=== PATIENT | male | born 1990 | race African-American/Black ===

== ENCOUNTER 2017-04-15 06:34 | Emergency (ER) | payer SELFPAY ==
[~2017-04-15] VITALS: Ht 180.3 cm; Wt 63.5 kg
[~2017-04-15 06:34] MED LIST: ATARAX25 MG PO; ATRIPLA TABLET1 EACH ORAL; AUGMENTIN TAB875 MG PO; BENADRYL25 MG ORAL; BENADRYL25 MG PO; CEPHALEXIN500 MG ORAL; FLONASE1 SPRAYS; IBUPROFEN600 MG ORAL; LORATADINE10 M1 PO; MULTIVITAMINS1 EAC2 PO; PHENERGAN/CODE120 ML PO; PREDNISONE50 MG ORAL; TAMIFLU75 MG PO; ZYRTEC10 MG ORAL; ZYRTEC10 MG PO
[2017-04-15 06:50] VITALS: BP 123/69
[2017-04-15] MEDS ORDERED: IBUPROFEN600 MG ORAL (06:54)
[2017-04-15 07:00] VITALS: BP 123/69
--- NOTE | 2017-04-15 07:23 | Emergency Room Report ---
History of Present Illness General Chief Complaint: General Complaint Source: Patient Present Illness HPI 26YOM with toothache to left lower mouth States has had 3/4 wisdom teeth removed, but not left lower mouth tooth Pain for 2 months Came this morning because he couldnt sleep no OTC meds Denies fever/chills, swelling of mouth, pus drainage from mouth Allergies: Coded Allergies: No Known Allergies (Unverified , 11/30/11) Patient History Past Medical History: HIV Past Surgical History: none Pertinent Family History: none Social History: Denies: smoking, alcohol use, drug use Immunizations: UTD Reviewed Nursing Documentation: PMH: Agreed, PSxH: Agreed Nursing Documentation-PMH Hx Neurological Problems: No Review of Systems All Other Systems: negative except mentioned in HPI Physical Exam Vital Signs Date Time Temp Pulse Resp B/P (MAP) Pulse Ox O2 Delivery O2 Flow Rate FiO2 04/15/17 06:37 97.3 87 18 123/69 98 Room Air Sp02 EP Interpretation: reviewed, normal General Appearance: normal inspection, well appearing, no apparent distress, alert, GCS 15, non-toxic Head: normocephalic, atraumatic Eyes: bilateral eye PERRL, bilateral eye EOMI ENT: normal ENT inspection, hearing grossly normal, normal pharynx, no angioedema, normal voice, TMs + canals normal, uvula midline, moist mucus membranes, other - Impacted left lower mouth wisdom tooth. No areli-apical infection or inflammation. No inner cheek ttp or mass. Neck: normal inspection, full range of motion, supple, thyroid normal, no meningismus, no bony tend Respiratory: normal inspection, lungs clear, normal breath sounds, no rhonchi, no respiratory distress, no retraction, no accessory muscle use, no wheezing, speaking full sentences Cardiovascular #1: regular rate, rhythm, no edema, no JVD, normal capillary refill Gastrointestinal: normal inspection, normal bowel sounds, non tender, soft, no mass, no peritonitis, non-distended, no guarding, no hernia, no pulsatile mass Genitourinary: no CVA tenderness Musculoskeletal: normal inspection, back normal, normal range of motion, no calf tenderness, pelvis stable, Nilo's Sign negative Neurologic: normal inspection, alert, oriented x3, responsive, cryptographic machine operator III-XII nml as tested, motor strength/tone normal, cerebellar normal, normal gait, speech normal Psychiatric: normal inspection, judgement/insight normal, mood/affect normal, no suicidal/homicidal ideation, no delusions Skin: normal inspection, normal color, no rash Lymphatic: normal inspection, no adenopathy Medical Decision Making Diagnostic Impression: Primary Impression: Toothache ER Course tootache from likely impacted wisdom tooth VSS, afebrile Analgesia provided Advised prompt dental followup ER course: Patient has remained stable during ED stay. Disposition: Patient is to be discharged to home. Prescriptions given are motrin Patient is instructed to follow up with their primary care doctor within 5 days. Strict return precautions discussed with patient such as fever, chills, worsening/severe pain, nausea, vomiting, which may indicate severe illness. Patient verbalizes understanding and agrees with plan. Please note that this Emergency Department Report was dictated using Kontagentthermoplastic technician technology software, occasionally this can lead to erroneous entry secondary to interpretation by the dictation equipment Last Vital Signs Date Time Temp Pulse Resp B/P (MAP) Pulse Ox O2 Delivery O2 Flow Rate FiO2 04/15/17 07:00 97.3 18 123/69 98 Room Air 04/15/17 06:37 87 Status: improved Disposition: HOME, SELF-CARE Condition: Improved Scripts Ibuprofen* (MOTRIN*) 600 Mg Tablet 600 MG ORAL THREE TIMES A DAY for toothache for 7 Days, #30 TAB 0 Refills Prov: VÍCTOR DOMINGUEZ M.D. 04/15/17 Referrals: NOT CHOSEN IPA/,REFERRING (PCP) Patient Instructions: Dental Pain Additional Instructions: - Followup at dental clinic TODAY VÍCTOR DOMINGUEZ M.D. Apr 15, 2017 07:23
== END 2017-04-15 07:00 | disposition home or self-care (01) ==
LOC: EMR 06:50
DX: K08.89 Other specified disorders of teeth and supporting structures (principal)
CPT/HCPCS: 99283

== ENCOUNTER 2017-04-19 05:05 | Emergency (ER) | payer SELFPAY ==
[~2017-04-19] VITALS: Ht 180.3 cm; Wt 63.5 kg
[2017-04-19] MEDS ORDERED: HYDROCODON-ACE1 EA15 ORAL (05:27)
[2017-04-19] MEDS ORDERED: AMOXICILLIN500 MG ORAL (05:27)
--- NOTE | 2017-04-19 05:29 | Emergency Room Report ---
History of Present Illness General Chief Complaint: Toothache Source: Patient Present Illness HPI This is a 26-year-old male with a past medical history. He presents with chief complaint of dental pain and smell from the tooth. Onset for a month but getting worse. Was seen here recently given ibuprofen. No antibiotics. No nausea no vomiting. No fever chills but no drainage. Worse with certain food and liquid. Allergies: Coded Allergies: No Known Allergies (Unverified , 11/30/11) Patient History Past Medical History: see triage record, old chart reviewed Past Surgical History: none Pertinent Family History: none Social History: Denies: smoking Immunizations: other Reviewed Nursing Documentation: PMH: Agreed, PSxH: Agreed Nursing Documentation-PMH Hx Neurological Problems: No Review of Systems Eye: Denies: eye pain, blurred vision ENT: Denies: ear pain, nose congestion, throat swelling Respiratory: Denies: cough, shortness of breath Cardiovascular: Denies: chest pain, palpitations Gastrointestinal: Denies: abdominal pain, diarrhea, nausea, vomiting Musculoskeletal: Denies: back pain, joint pain Skin: Denies: rash Neurological: Denies: headache, numbness Endocrine: Denies: increased thirst, increased urine Hematologic/Lymphatic: Denies: easy bruising All Other Systems: negative except mentioned in HPI Physical Exam Vital Signs Date Time Temp Pulse Resp B/P (MAP) Pulse Ox O2 Delivery O2 Flow Rate FiO2 04/19/17 05:08 97.5 75 16 150/96 98 Room Air vitals normal so for high blood pressure Sp02 EP Interpretation: reviewed, normal General Appearance: well appearing, no apparent distress, alert Head: normocephalic, atraumatic Eyes: bilateral eye PERRL, bilateral eye EOMI ENT: hearing grossly normal, normal pharynx, other - Left Lower second molar Dental decay. No abscess Neck: full range of motion, supple, no meningismus Respiratory: chest non-tender, lungs clear, normal breath sounds Cardiovascular #1: regular rate, rhythm, no murmur Gastrointestinal: normal bowel sounds, non tender, no mass, no organomegaly, no bruit, non-distended Musculoskeletal: back normal, gait/station normal, normal range of motion Psychiatric: mood/affect normal Skin: warm/dry Medical Decision Making Diagnostic Impression: Primary Impression: Toothache ER Course Patient with dental pain with possible dental infection. Will need to see a dentist WIN. Notice of any abscess I can be I&D. We'll discharge home with antibiotics. Last Vital Signs Date Time Temp Pulse Resp B/P (MAP) Pulse Ox O2 Delivery O2 Flow Rate FiO2 04/19/17 05:08 97.5 75 16 150/96 98 Room Air Status: unchanged Disposition: HOME, SELF-CARE Condition: Stable Scripts Hydrocodone/Acetaminophen 5-325* (HYDROCODONE/ACETAMINOPHEN 5-325*) 1 Each Tablet 1 TAB ORAL Q6H Y for For Pain, #15 TAB 0 Refills Prov: SHWETA AVINA M.D. 04/19/17 Amoxicillin* (AMOXIL*) 500 Mg Capsule 500 MG ORAL THREE TIMES A DAY, #21 CAP Prov: SHWETA AVINA M.D. 04/19/17 Patient Instructions: Dental Pain Additional Instructions: Followup with dentist WIN. You can try calling [facility] or [facility] dental [facility] to see a they have a clinic. Return if symptom worsen. SHWETA AVINA M.D. Apr 19, 2017 05:29
[2017-04-19 05:30] VITALS: BP 142/88
[2017-04-19 05:35] VITALS: BP 142/88
== END 2017-04-19 05:35 | disposition home or self-care (01) ==
LOC: EMR 05:25
DX: K08.89 Other specified disorders of teeth and supporting structures (principal)
CPT/HCPCS: 99283

== ENCOUNTER 2017-06-23 10:11 | Emergency (ER) | payer MEDICAID ==
[~2017-06-23] VITALS: Ht 182.9 cm; Wt 63.5 kg
[~2017-06-23 10:11] MED LIST changes: +AMOXICILLIN500 MG ORAL; +HYDROCODON-ACE1 EA15 ORAL
[2017-06-23 10:42] VITALS: BP 135/80
[2017-06-23] MEDS ORDERED: Lidocaine 2% Visc 15ml soln ORAL ONE (10:45)
--- NOTE | 2017-06-23 11:01 | Emergency Room Report ---
History of Present Illness General Chief Complaint: Toothache Source: Patient Present Illness HPI Patient presents with L molar pain (possible wisdom tooth). Seen by dentist today and told to come to ED. No fevers, sore throat, dyspnea, chest pain, trauma. Was seen twice last month for similar problem. Allergies: Coded Allergies: No Known Allergies (Unverified , 11/30/11) Patient History Past Medical History: see triage record Social History: Reports: smoking Social History Narrative student Reviewed Nursing Documentation: PMH: Agreed; PSxH: Agreed Nursing Documentation-PMH Hx Cardiac Problems: Yes - HIV+ Hx Neurological Problems: No Review of Systems Constitutional: Reports: see HPI ENT: Reports: see HPI Respiratory: Reports: see HPI Cardiovascular: Denies: chest pain Gastrointestinal: Denies: nausea Physical Exam Vital Signs Date Time Temp Pulse Resp B/P (MAP) Pulse Ox O2 Delivery O2 Flow Rate FiO2 06/23/17 10:32 97.8 76 22 135/80 98 Room Air 97.9 Sp02 EP Interpretation: reviewed, normal General Appearance: well appearing, no apparent distress, alert Head: normocephalic, atraumatic Eyes: bilateral eye normal inspection, bilateral eye PERRL ENT: hearing grossly normal, normal pharynx, normal voice, moist mucus membranes, other - L rear molar (wisdom tooth) with partial coverage with gum. No drainage Neck: full range of motion, supple, other - jaw FROM Respiratory: no respiratory distress, speaking full sentences Cardiovascular #1: normal peripheral pulses Cardiovascular #2: 2+ radial (L) Rectal: normal exam Musculoskeletal: no calf tenderness Neurologic: alert, normal gait, grossly normal Psychiatric: mood/affect normal Skin: no rash Medical Decision Making Diagnostic Impression: Primary Impression: Impacted third molar tooth Additional Impression: Toothache ER Course Patient with tooth pain. Exam c/w infected L lower molar/wisdom tooth. Viscous lido applied and amox started. Improved with treatment. Advised that he needs to see a dentis soon. (I suggested [facility] dental clinic.) Patient stable for outpatient observation and treatment. Of note, patient here twice last month with same complaint. Search of Cures negative. Last Vital Signs Date Time Temp Pulse Resp B/P (MAP) Pulse Ox O2 Delivery O2 Flow Rate FiO2 06/23/17 12:10 97.9 75 20 135/80 98 Room Air 97.9 Status: improved Disposition: HOME, SELF-CARE Condition: Improved Scripts Lidocaine HCl 2% Viscous (Lidocaine HCl 2% Viscous) 100 Ml Solution 1 APPLIC ORAL QID, #10 ML Prov: Mitch Lucero M.D. 06/23/17 Tramadol Hcl* (ULTRAM*) 50 Mg Tablet 50 MG ORAL Q6H PRN for For Pain, #8 TAB 0 Refills Prov: Mitch Lucero M.D. 06/23/17 Ibuprofen* (MOTRIN*) 600 Mg Tablet 600 MG ORAL Q6H PRN for For Pain, #20 TAB Prov: Mitch Lucero M.D. 06/23/17 Amoxicillin* (AMOXIL*) 500 Mg Capsule 500 MG ORAL THREE TIMES A DAY, #21 CAP Prov: Mitch Lucero M.D. 06/23/17 Mitch Lucero M.D. Jun 23, 2017 11:01
[2017-06-23] MEDS ORDERED: TRAMADOL HCL50 MG ORAL (11:32)
[2017-06-23] MEDS ORDERED: IBUPROFEN600 MG ORAL (11:32)
[2017-06-23] MEDS ORDERED: AMOXICILLIN500 MG ORAL (11:32)
[2017-06-23] MEDS ORDERED: LIDOCAINE VISC100 ML ORAL (11:33)
[2017-06-23 12:10] VITALS: BP 135/80
== END 2017-06-23 12:24 | disposition home or self-care (01) ==
LOC: EMR 11:37
DX: K01.1 Impacted teeth (principal); K08.89 Other specified disorders of teeth and supporting structures
CPT/HCPCS: 99284

== ENCOUNTER 2019-06-19 22:20 | Emergency (ER) | payer MEDICAID ==
[~2019-06-19] VITALS: Ht 182.9 cm; Wt 70.3 kg
[~2019-06-19 22:20] MED LIST changes: +LIDOCAINE VISC100 ML ORAL; +TRAMADOL HCL50 MG ORAL
[2019-06-19 22:40] VITALS: BP 122/74
--- NOTE | 2019-06-19 22:40 | NUR ---
ED Nurse Note: Pt walked into ED for STD evaluation. Pt states he believes to have multiple STDs and wants to be treated. Pt reports sores on penis. Pt is aaox4, no cardiac or respiratory distress.
[2019-06-19] MEDS ORDERED: FLUCONAZOLE100 MG ORAL (22:51)
[2019-06-19] MEDS ORDERED: ACYCLOVIR400 MG ORAL (22:51)
[2019-06-19] MEDS ORDERED: Bicillin LA 2.4MMU/4ML SYR IM ONE (23:00)
[2019-06-19] MEDS ORDERED: Lidocaine 1% MPF 10mg/ml 5ml INJ ONE (23:00)
[2019-06-19] MEDS ORDERED: Azithromycin 250mg tab ORAL ONE (23:00)
[2019-06-19 23:05] VITALS: BP 118/90
--- NOTE | 2019-06-19 23:05 | NUR ---
ER DISCHARGE NOTE: Patient is cleared to be discharged per ERMD, pt is aox4, on room air, with stable vital signs. pt was given dc and prescription instructions, pt was able to verbalize understanding, pt id band removed. pt is able to ambulate with steady gait. pt took all belongings.
--- NOTE | 2019-06-20 03:47 | Emergency Room Report ---
History of Present Illness General Chief Complaint: General Complaint Source: Patient Present Illness HPI 28-year-old male presents ED. States he is here for possible STD. States he has had unprotected sex. States that he is noticing some discharge. Also states he notes a rash around his genital area. Denies any pain. Denies any fevers or chills. No other aggravating relieving factors. Denies any other associated symptoms Allergies: Coded Allergies: No Known Allergies (Unverified , 11/30/11) COVID-19 Screening Contact w/high risk pt: No Recent Travel to affected area: No Experienced COVID-19 symptoms?: No Patient History Past Medical History: none Past Surgical History: none Pertinent Family History: none Social History: Denies: smoking, alcohol use, drug use Immunizations: UTD Reviewed Nursing Documentation: PMH: Agreed; PSxH: Agreed Nursing Documentation-PMH Hx Neurological Problems: No Review of Systems All Other Systems: negative except mentioned in HPI Physical Exam Vital Signs Date Time Temp Pulse Resp B/P (MAP) Pulse Ox O2 Delivery O2 Flow Rate FiO2 06/19/19 22:29 97.7 87 19 122/74 (90) 96 Room Air Sp02 EP Interpretation: reviewed, normal General Appearance: no apparent distress, alert, GCS 15, non-toxic Head: normocephalic, atraumatic Eyes: bilateral eye normal inspection, bilateral eye PERRL ENT: hearing grossly normal, normal pharynx, no angioedema, normal voice Neck: full range of motion, supple/symm/no masses Respiratory: chest non-tender, lungs clear, normal breath sounds, speaking full sentences Cardiovascular #1: regular rate, rhythm, no edema Cardiovascular #2: 2+ carotid (R), 2+ carotid (L), 2+ radial (R), 2+ radial (L) , 2+ dorsalis pedis (R), 2+ dorsalis pedis (L) Gastrointestinal: normal bowel sounds, non tender, soft, non-distended, no guarding, no rebound Rectal: deferred Genitourinary: normal inspection, no CVA tenderness Musculoskeletal: back normal, normal range of motion, gait/station normal, non- tender Neurologic: alert, motor strength/tone normal, oriented x3, sensory intact, responsive, speech normal Psychiatric: judgement/insight normal, memory normal, mood/affect normal, no suicidal/homicidal ideation Reflexes: 3+ bicep (R), 3+ bicep (L), 3+ tricep (R), 3+ tricep (L), 3+ knee (R) , 3+ knee (L) Lymphatic: no adenopathy Medical Decision Making Diagnostic Impression: Primary Impression: Encounter for assessment of STD exposure ER Course Hospital Course 28-year-old male presents ED with discharge. History of unprotected sex Differential diagnoses include: trichimonas, gonorrhea, chlamydia Clinical course Patient placed on stretcher. After initial history physical exam reveals a young male in no acute distress. Physical exam unremarkable. No testicular pain or swelling. No noted urethral discharge. No appreciable rash around the anal region or around the genitals. I discussed findings with patient. Concern for syphilis, gonorrhea/chlamydia. Given Rocephin/azithromycin. Given penicillin G. Will discharge with acyclovir. Recommend follow-up with STD clinic. I will provide referrals. Safe for discharge Diagnosis - encounter for assessment of STD exposure Stable and discharged home with prescriptions for Rx acyclovir. Instructed to followup with PMD. Return to ED if symptoms recur or worsen Last Vital Signs Date Time Temp Pulse Resp B/P (MAP) Pulse Ox O2 Delivery O2 Flow Rate FiO2 06/19/19 23:05 97.7 85 19 118/90 98 Room Air Status: improved Disposition: HOME, SELF-CARE Condition: Stable Scripts Fluconazole (FLUCONAZOLE) 100 Mg Tablet 100 MG ORAL DAILY for 3 Days, TAB 0 Refills Prov: Julio César Gallarod MD 06/19/19 Acyclovir* (ACYCLOVIR*) 400 Mg Tablet 400 MG ORAL FIVE TIMES A DAY for 7 Days, TAB Prov: Julio César Gallardo MD 06/19/19 Referrals: [facility] Patient Instructions: Chlamydia, Male Additional Instructions: in light of coronavirus pandemic we encourage you to go home and self-isolate. your close contacts need to self-isolate as well Julio César Gallardo MD Jun 20, 2019 03:47
== END 2019-06-19 23:05 | disposition home or self-care (01) ==
LOC: EMR 22:56
DX: R21 Rash and other nonspecific skin eruption (principal); Z20.2 Contact with and (suspected) exposure to infections with a predominantly sexual mode of transmission
CPT/HCPCS: 96372; 96374; J0696; Q0144; Z7502; 99284

== ENCOUNTER 2019-07-01 09:29 | Emergency (ER) | payer MEDICAID ==
[~2019-07-01] VITALS: Ht 182.9 cm; Wt 68.0 kg
[2019-07-01 09:20] VITALS: BP 156/99
--- NOTE | 2019-07-01 09:28 | NUR ---
ED Nurse Note: walked in to ED due to lesion on penis for couple weeks. denies any sx. per pt, seen by [facility] on that time and clear for any tx. pt also c/o possible lice on head. per pt, "something eat up" AAO x4. respirations even and non-labored noted. ambulatory with steady gait. pt placed in isolation tent due to contact with COVID positive client. will wait for the further order
[~2019-07-01 09:29] MED LIST changes: +ACYCLOVIR400 MG ORAL; +FLUCONAZOLE100 MG ORAL
--- NOTE | 2019-07-01 09:52 | Emergency Room Report ---
History of Present Illness General Chief Complaint: Male Urogenital Problems Source: Patient Present Illness HPI Patient presents with complaints of possible head lice Reports that he also has some continued itching In the genital region Denies any fevers or chills denies any chest pain denies any vomiting Denies any back or flank pain denies any dysuria frequency Allergies: Coded Allergies: No Known Allergies (Unverified , 11/30/11) COVID-19 Screening Contact w/high risk pt: Yes Recent Travel to affected area: No Experienced COVID-19 symptoms?: No Patient History Past Medical History: see triage record Reviewed Nursing Documentation: PMH: Agreed; PSxH: Agreed Nursing Documentation-PMH Past Medical History: No Stated History Hx Neurological Problems: No Review of Systems All Other Systems: negative except mentioned in HPI Physical Exam Vital Signs Date Time Temp Pulse Resp B/P (MAP) Pulse Ox O2 Delivery O2 Flow Rate FiO2 07/01/19 09:20 98.1 97 18 156/99 96 Room Air Sp02 EP Interpretation: reviewed, normal General Appearance: well appearing, no apparent distress Head: normocephalic, atraumatic Eyes: bilateral eye PERRL, bilateral eye EOMI ENT: hearing grossly normal, EOM grossly intact Neck: supple Respiratory: lungs clear, no respiratory distress, no retraction Cardiovascular #1: regular rate, rhythm Gastrointestinal: non tender, soft Musculoskeletal: normal inspection Neurologic: motor strength/tone normal Skin: no rash Lymphatic: no adenopathy Medical Decision Making Diagnostic Impression: Primary Impression: Lice Additional Impression: Encounter for medical screening examination ER Course On evaluation I cannot appreciate any obvious lice Patient also otherwise is medically stable and comfortable He had complained of some irritation to the penile area however on further questioning reports that there is nothing visual at this time Before the exam was Very limited patient was here recently He has the same name however date of is different therefore it does not populate for review please search by patient's name appears the patient was here on the june Patient was treated fully with oral and IM injections prescription for acyclovir Also provided with penicillin injection Patient does not require any further emergent intervention and is appropriate for continued outpatient follow-up Last Vital Signs Date Time Temp Pulse Resp B/P (MAP) Pulse Ox O2 Delivery O2 Flow Rate FiO2 07/01/19 09:20 98.1 97 18 156/99 (118) 96 Room Air Status: unchanged Disposition: HOME, SELF-CARE Condition: Stable Scripts Permethrin* (ELIMITE*) 60 Gm Cream..g. 1 APPLIC TOPIC ONCE for 3 Days, #60 GM 0 Refills Apply cream from head to toe; leave on for 8-14 hours before washing off with water; may reapply in 1 week if live mites appear. Prov: Surekha Marin DO 07/01/19 Referrals: NON PHYSICIAN (PCP) Additional Instructions: Patient is provided with the discharge instructions notified to follow up with primary doctor in the next 2-3 days otherwise return to the er with any worsening symptoms. Please note that this report is being documented using DRAGON technology. This can lead to erroneous entry secondary to incorrect interpretation by the dictating instrument. Surekha Marin DO Jul 01, 2019 09:52
[2019-07-01] MEDS ORDERED: PERMETHRIN60 GM TOPIC (09:57)
[2019-07-01 10:00] VITALS: BP 155/92
--- NOTE | 2019-07-01 10:00 | NUR ---
ER DISCHARGE NOTE: Pt is cleared to be discharged per ERMD, pt is aox4, on room air, with stable vital signs. pt was given dc and prescription instructions, pt was able to verbalize understanding, pt id band removed. pt is able to ambulate with steady gait. pt took all belongings.
== END 2019-07-01 10:00 | disposition home or self-care (01) ==
LOC: EMR 09:46
DX: B85.2 Pediculosis, unspecified (principal)
CPT/HCPCS: 99282

== ENCOUNTER 2019-12-10 22:03 | Emergency (ER) | payer MEDICAID ==
[~2019-12-10] VITALS: Ht 180.3 cm; Wt 72.6 kg
[~2019-12-10 22:03] MED LIST changes: +PERMETHRIN60 GM TOPIC
[2019-12-10 22:09] VITALS: BP 121/83
[2019-12-10 22:20] VITALS: BP 121/83
--- NOTE | 2019-12-10 22:20 | NUR ---
ED Nurse Note: Walk-in patient with complaints of STi symptoms.
[2019-12-10] MEDS ORDERED: Azithromycin 250mg tab ORAL ONE (22:30)
[2019-12-10] MEDS ORDERED: Lidocaine 1% MPF 10mg/ml 5ml INJ ONE (22:30)
--- NOTE | 2019-12-10 22:32 | Emergency Room Report ---
History of Present Illness General Chief Complaint: Male Urogenital Problems Source: Patient, Medical Record Present Illness HPI This a 29-year-old male with a history of HIV. He also has a history of multiple STDs in the past. He presents with chief complaint of possible STD. He is sexually active and has unprotected sex with multiple partners. He has some dysuria. No discharge. There is been ongoing for last few days. Similar symptom in the past. No fever chills but worse with urination. Denies any trauma. Allergies: Coded Allergies: No Known Allergies (Unverified , 11/30/11) COVID-19 Screening Contact w/high risk pt: No Recent Travel to affected area: No Experienced COVID-19 symptoms?: No COVID-19 Testing performed REGISTERED NURSE AMBULATORY: No Patient History Past Medical History: see triage record, old chart reviewed, HIV Past Surgical History: other Pertinent Family History: none Social History: Denies: smoking Immunizations: other Reviewed Nursing Documentation: PMH: Agreed; PSxH: Agreed Nursing Documentation-PMH Hx Neurological Problems: No Review of Systems Eye: Denies: eye pain, blurred vision ENT: Denies: ear pain, nose congestion, throat swelling Respiratory: Denies: cough, shortness of breath Cardiovascular: Denies: chest pain, palpitations Gastrointestinal: Denies: abdominal pain, diarrhea, nausea, vomiting Genitourinary: Reports: dysuria Musculoskeletal: Denies: back pain, joint pain Skin: Denies: rash Neurological: Denies: headache, numbness Endocrine: Denies: increased thirst, increased urine Hematologic/Lymphatic: Denies: easy bruising All Other Systems: negative except mentioned in HPI Physical Exam Vital Signs Date Time Temp Pulse Resp B/P (MAP) Pulse Ox O2 Delivery O2 Flow Rate FiO2 12/10/19 22:09 99.0 81 18 121/83 (96) 98 Room Air Vitals normal Sp02 EP Interpretation: reviewed, normal General Appearance: well appearing, no apparent distress, alert Head: normocephalic, atraumatic Eyes: bilateral eye PERRL, bilateral eye EOMI ENT: hearing grossly normal, normal pharynx Neck: full range of motion, supple, no meningismus Respiratory: chest non-tender, lungs clear, normal breath sounds Cardiovascular #1: regular rate, rhythm, no murmur Gastrointestinal: normal bowel sounds, non tender, no mass, no organomegaly, no bruit, non-distended Genitourinary: penis normal - No discharge Musculoskeletal: back normal, normal range of motion, gait/station normal Psychiatric: mood/affect normal Medical Decision Making Diagnostic Impression: Primary Impression: Urethritis, unspecified ER Course Patient with symptoms with possible STD. High risk patient. Patient given Rocephin and azithromycin here. Recommend outpatient testing for syphilis, hepatitis and other STDs. Recommend patient wear condoms at all time. Last Vital Signs Date Time Temp Pulse Resp B/P (MAP) Pulse Ox O2 Delivery O2 Flow Rate FiO2 12/10/19 22:09 99.0 81 18 121/83 (96) 98 Room Air Status: improved Disposition: HOME, SELF-CARE Condition: Stable Patient Instructions: Urethritis, Adult Additional Instructions: Have your partners treated. Use protection with a sexual activities. Follow-up with in 7 days. Return if worse. Harjit Bose MD Dec 10, 2019 22:32
--- NOTE | 2019-12-10 22:39 | NUR ---
ER DISCHARGE NOTE: Patient is cleared to be discharged per ERMD. Patient rendered medication for STI, patient verbalized understanding of discharge instructions and departed with all belongings to home via personal vehicle.
== END 2019-12-10 22:45 | disposition home or self-care (01) ==
LOC: EMR 22:43
DX: N34.2 Other urethritis (principal); B20 Human immunodeficiency virus [HIV] disease
CPT/HCPCS: 96372; 96374; J0696; Q0144; Z7502; 99284

== ENCOUNTER 2020-04-29 15:31 | Inpatient (IN) | payer MEDICAID ==
[~2020-04-29] VITALS: Ht 177.8 cm; Wt 69.9 kg
[2020-04-29] MEDS ORDERED: Glucagon 1mg Inj IV ONE (15:45)
[2020-04-29] MEDS ORDERED: Ketorolac 30mg Inj IV ONE (15:45)
[2020-04-29 15:50] VITALS: BP 112/88
[2020-04-29 16:08] LABS: BASOPHILS % (AUTO) 1.1 % (0.0-2.0); EOSINOPHILS % (AUTO) 1.2 % (0.0-3.0); HEMATOCRIT 58.9 % (42.0-52.0); HEMOGLOBIN 17.9 G/DL (14.2-18.0); LYMPHOCYTES % (AUTO) 25.8 % (20.0-45.0); MEAN CORPUSCULAR VOLUME 92 FL (80-99); MONOCYTES % (AUTO) 5.1 % (1.0-10.0); NEUTROPHILS % (AUTO) 66.8 % (45.0-75.0); PLATELET COUNT 399 K/UL (150-450); RED CELL DISTRIBUTION WIDTH 13.9 % (11.6-14.8); WHITE BLOOD COUNT 10.1 K/UL (4.8-10.8)
[2020-04-29 16:20] LABS: CALCIUM 10.8 MG/DL (8.5-10.1); CREATININE 2.6 MG/DL (0.55-1.30); POTASSIUM 4.1 MMOL/L (3.5-5.1)
[2020-04-29 16:31] LABS: ALBUMIN 5.2 G/DL (3.4-5.0); ALBUMIN/GLOBULIN RATIO 0.9 (1.0-2.7); BILIRUBIN,DIRECT 0.2 MG/DL (0.0-0.3); BILIRUBIN,TOTAL 1.5 MG/DL (0.2-1.0)
--- NOTE | 2020-04-29 16:34 | Diagnostic Imaging Report ---
Indication: Evidence of foreign body stuck in esophagus Technique: 2 views of the neck with soft tissue technique Comparison: none Findings: Radiopaque foreign body demonstrated. The small amount gas is seen in the distal cervical esophagus. No prevertebral soft tissue swelling. Normal epiglottis and hypopharynx. Normal cervical spine Impression: Negative
[2020-04-29] MEDS ORDERED: Varibar Thin Liquid powder 148gm MC PRN (16:45)
[2020-04-29] MEDS ORDERED: Barium EZ HD MC PRN (16:45)
[2020-04-29] MEDS ORDERED: Barium EZ Gas II granules MC PRN (16:45)
[2020-04-29 17:56] VITALS: BP 105/92
--- NOTE | 2020-04-29 18:21 | Emergency Room Report ---
History of Present Illness General Chief Complaint: Vomiting Source: Patient Present Illness HPI 29-year-old male presents for vomiting. Brought in by EMS from home. States that this morning he swallowed some steak and states he feels stuck in his throat. Multiple episodes of vomiting. Pain discomfort in his throat. Dull, 8 out of 10, nonradiating. Denies chest pain. Denies shortness of breath. No other aggravating relieving factors. Denies any other associated symptoms Allergies: Coded Allergies: No Known Allergies (Unverified , 04/29/20) COVID-19 Screening Contact w/high risk pt: No Recent Travel to affected area: No Experienced COVID-19 symptoms?: Yes COVID-19 Testing performed DIRECTOR STYLE: No Patient History Past Medical History: psych hx, HIV Past Surgical History: none Pertinent Family History: none Social History: Denies: smoking, alcohol use, drug use Immunizations: UTD Reviewed Nursing Documentation: PMH: Agreed; PSxH: Agreed Nursing Documentation-PMH Past Medical History: No History, Except For History Of Psychiatric Problem: Yes - bipolar, HIV Hx Neurological Problems: No Review of Systems All Other Systems: negative except mentioned in HPI Physical Exam Vital Signs Date Time Temp Pulse Resp B/P (MAP) Pulse Ox O2 Delivery O2 Flow Rate FiO2 04/29/20 15:26 98.1 114 24 112/88 (96) 96 Room Air Sp02 EP Interpretation: reviewed, normal General Appearance: no apparent distress, alert, GCS 15, non-toxic Head: normocephalic, atraumatic Eyes: bilateral eye normal inspection, bilateral eye PERRL ENT: hearing grossly normal, normal pharynx, no angioedema, normal voice Neck: full range of motion, supple/symm/no masses Respiratory: chest non-tender, lungs clear, normal breath sounds, speaking full sentences Cardiovascular #1: regular rate, rhythm, no edema Cardiovascular #2: 2+ carotid (R), 2+ carotid (L), 2+ radial (R), 2+ radial (L), 2+ dorsalis pedis (R), 2+ dorsalis pedis (L) Gastrointestinal: normal bowel sounds, non tender, soft, non-distended, no guarding, no rebound Rectal: deferred Genitourinary: normal inspection, no CVA tenderness Musculoskeletal: back normal, normal range of motion, gait/station normal, non- tender Neurologic: alert, motor strength/tone normal, oriented x3, sensory intact, responsive, speech normal Psychiatric: judgement/insight normal, memory normal, mood/affect normal, no suicidal/homicidal ideation Reflexes: 3+ bicep (R), 3+ bicep (L), 3+ tricep (R), 3+ tricep (L), 3+ knee (R), 3+ knee (L) Lymphatic: no adenopathy Medical Decision Making Diagnostic Impression: Primary Impression: Esophageal obstruction due to food impaction Additional Impression: Dehydration ER Course Hospital Course 29-year-old male presents with throat pain and vomiting after swallowing steak today Differential diagnoses include: Esophagitis, gastritis, esophageal obstruction Clinical course Patient placed on stretcher. 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 After initial history and physical I ordered labs, IV fluids, pain meds, glucagon Soft tissue film shows no obvious evidence of food impaction patient continues to vomit after p.o. challenge discussed with radiology. Esophagram performed which confirmed food impaction Labs - no leukocytosis, Hb/Hct stable. BUN/Cr elevated Dr Lopez (GI) consulted. Case discussed with Dr. Decker and he agreed to accept the patient to his service for further care and support I feel this is a highly complex case requiring extensive working including EKG/Rhythm strip, Xray/CT/US, Blood/urine lab work, repeat exams while in ED, and administration of strong opiates/narcotics for pain control, admission to hospital or close patient follow up. Diagnosis -esophageal obstruction due to food impaction, dehydration Patient admitted to floor in serious condition Laboratory Tests Test 04/29/20 15:38 White Blood Count 10.1 K/UL (4.8-10.8) Red Blood Count 6.40 M/UL (4.70-6.10) H Hemoglobin 17.9 G/DL (14.2-18.0) Hematocrit 58.9 % (42.0-52.0) H Mean Corpuscular Volume 92 FL (80-99) Mean Corpuscular Hemoglobin 28.0 PG (27.0-31.0) Mean Corpuscular Hemoglobin Concent 30.4 G/DL (32.0-36.0) L Red Cell Distribution Width 13.9 % (11.6-14.8) Platelet Count 399 K/UL (150-450) Mean Platelet Volume 8.1 FL (6.5-10.1) Neutrophils (%) (Auto) 66.8 % (45.0-75.0) Lymphocytes (%) (Auto) 25.8 % (20.0-45.0) Monocytes (%) (Auto) 5.1 % (1.0-10.0) Eosinophils (%) (Auto) 1.2 % (0.0-3.0) Basophils (%) (Auto) 1.1 % (0.0-2.0) Sodium Level 143 MMOL/L (136-145) Potassium Level 4.1 MMOL/L (3.5-5.1) Chloride Level 104 MMOL/L (98-107) Carbon Dioxide Level 27 MMOL/L (21-32) Anion Gap 12 mmol/L (5-15) Blood Urea Nitrogen 30 mg/dL (7-18) H Creatinine 2.6 MG/DL (0.55-1.30) H Estimat Glomerular Filtration Rate 36.1 mL/min (>60) Glucose Level 144 MG/DL (74-106) H Calcium Level 10.8 MG/DL (8.5-10.1) H Total Bilirubin 1.5 MG/DL (0.2-1.0) H Direct Bilirubin 0.2 MG/DL (0.0-0.3) Aspartate Amino Transf (AST/SGOT) 22 U/L (15-37) Alanine Aminotransferase (ALT/SGPT) 35 U/L (12-78) Alkaline Phosphatase 101 U/L (46-116) Total Protein 11.1 G/DL (6.4-8.2) H Albumin 5.2 G/DL (3.4-5.0) H Globulin 5.9 g/dL Albumin/Globulin Ratio 0.9 (1.0-2.7) L Lipase 140 U/L (73-393) Chest X-Ray Diagnostic Results Chest X-Ray Diagnostic Results : Chest X-Ray Ordered: Yes # of Views/Limited/Complete: 1 View Indication: Other EP Interpretation: Yes Interpretation: no consolidation, no effusion, no pneumothorax, no acute cardiopulmonary disease, other - barium bolus seen on CXR Impression: Other - food impaction Electronically Signed by: Electronically signed by Julio César Gallardo MD Other X-Ray Diagnostic Results Other X-Ray Diagnostic Results : X-Ray ordered: esophagram # of Views/Limited Vs Complete: Complete Indication: Pain EP Interpretation: Yes Interpretation: nonspecific bowel gas, no sbo, other - food impaction Impression: Other - food impaction Electronically Signed by: Electronically signed by Julio César Gallardo MD Last Vital Signs Date Time Temp Pulse Resp B/P (MAP) Pulse Ox O2 Delivery O2 Flow Rate FiO2 04/29/20 17:56 98.0 75 16 105/92 100 Room Air Status: improved Disposition: ADMITTED INPATIENT Condition: Serious Referrals: [facility],REFERRING (PCP) Julio César Gallardo MD Apr 29, 2020 18:21
--- NOTE | 2020-04-29 19:40 | NUR ---
NURSE NOTES: Received report from SEGUNDO Sy. Awaiting pt transfer.
--- NOTE | 2020-04-29 19:50 | NUR ---
TRANSFER TO FLOOR: Patient transferred to [facility] as ordered, per MD. Report given to David. Arnold at patient's BEDSIDE
[2020-04-29 19:51] LABS: INR 1.1 (0.9-1.1)
--- NOTE | 2020-04-29 19:55 | NUR ---
NURSE NOTES: Pt arrived on floor via gurney. A&Ox4, pt has belongings at bedside. Pt is ambulatory and is able to make needs known. Side rails up x2, bed locked and in lowest position, call light within reach. Will contact doctor for admission orders.
--- NOTE | 2020-04-29 21:25 | NUR ---
NURSE NOTES: Received admission orders, will enter and carry them out.
[2020-04-29] MEDS: D5 1/2NS 1,000 ML IV SCH (21:53)
--- NOTE | 2020-04-29 22:03 | Diagnostic Imaging Report ---
Indication: Chest pain Technique: One view of the chest Comparison: none Findings: Contrast is seen in the proximal thoracic esophagus, presumably residual from previous esophagram which demonstrated complete esophageal obstruction at this level. The lungs and pleural spaces are clear. Impression: No acute cardiopulmonary process Residual contrast in the proximal thoracic esophagus presumably left over from recent esophagram
[2020-04-30] VITALS (12 sets, daily range): BP systolic 93–136; BP diastolic 62–101
[2020-04-30] MEDS: Morphine Sulfate 2mg/ml Inj(IV/IM USE ONLY) IVP PRN ×2 (02:05→05:33)
--- NOTE | 2020-04-30 06:41 | Anethesia Preoperative Eval ---
Anesthesia Pre-op PMH/ROS General Date of Evaluation: Apr 30, 2020 Time of Evaluation: 06:38 Anesthesiologist: rome ASA Score: ASA 2 Mallampati Score Class I : Soft palate, uvula, fauces, pillars visible Class II: Soft palate, uvula, fauces visible Class III: Soft palate, base of uvula visible Class IV: Only hard plate visible Mallampati Classification: Class II Surgeon: zeus Diagnosis: esophageal obstruction Surgical Procedure: egd Anesthesia History: none Family History: no anesthesia problems Allergies: Coded Allergies: No Known Allergies (Unverified , 04/29/20) Medications: see eMAR Patient NPO?: Yes Past Medical History Neurologic/Psychiatric: Reports: depression/anxiety - bipolar Hematology/Immune: Reports: other - hiv Anesthesia Pre-op Phys. Exam Physician Exam Last Vital Signs Date Time Temp Pulse Resp B/P (MAP) Pulse Ox O2 Delivery O2 Flow Rate FiO2 04/30/20 04:00 97.3 89 20 136/101 (113) 99 04/29/20 22:06 Room Air Constitutional: NAD Neurologic: CN 2-12 intact Cardiovascular: RRR Respiratory: CTA Gastrointestinal: S/NT/ND Airway Exam Mallampati Score: Class II MO: full Neck: flexible TMD: 2fb ROM: full Teeth: intact Anesthesia Pre-op A/P Labs Hematology Test 04/29/20 15:38 White Blood Count 10.1 K/UL (4.8-10.8) Red Blood Count 6.40 M/UL (4.70-6.10) H Hemoglobin 17.9 G/DL (14.2-18.0) Hematocrit 58.9 % (42.0-52.0) H Mean Corpuscular Volume 92 FL (80-99) Mean Corpuscular Hemoglobin 28.0 PG (27.0-31.0) Mean Corpuscular Hemoglobin Concent 30.4 G/DL (32.0-36.0) L Red Cell Distribution Width 13.9 % (11.6-14.8) Platelet Count 399 K/UL (150-450) Mean Platelet Volume 8.1 FL (6.5-10.1) Neutrophils (%) (Auto) 66.8 % (45.0-75.0) Lymphocytes (%) (Auto) 25.8 % (20.0-45.0) Monocytes (%) (Auto) 5.1 % (1.0-10.0) Eosinophils (%) (Auto) 1.2 % (0.0-3.0) Basophils (%) (Auto) 1.1 % (0.0-2.0) Coagulation Test 04/29/20 15:38 Prothrombin Time 11.9 SEC (9.30-11.50) H Prothromb Time International Ratio 1.1 (0.9-1.1) Activated Partial Thromboplast Time 24 SEC (23-33) Chemistry Test 04/29/20 15:38 Sodium Level 143 MMOL/L (136-145) Potassium Level 4.1 MMOL/L (3.5-5.1) Chloride Level 104 MMOL/L (98-107) Carbon Dioxide Level 27 MMOL/L (21-32) Anion Gap 12 mmol/L (5-15) Blood Urea Nitrogen 30 mg/dL (7-18) H Creatinine 2.6 MG/DL (0.55-1.30) H Estimat Glomerular Filtration Rate 36.1 mL/min (>60) Glucose Level 144 MG/DL (74-106) H Calcium Level 10.8 MG/DL (8.5-10.1) H Total Bilirubin 1.5 MG/DL (0.2-1.0) H Direct Bilirubin 0.2 MG/DL (0.0-0.3) Aspartate Amino Transf (AST/SGOT) 22 U/L (15-37) Alanine Aminotransferase (ALT/SGPT) 35 U/L (12-78) Alkaline Phosphatase 101 U/L (46-116) Total Protein 11.1 G/DL (6.4-8.2) H Albumin 5.2 G/DL (3.4-5.0) H Globulin 5.9 g/dL Albumin/Globulin Ratio 0.9 (1.0-2.7) L Lipase 140 U/L (73-393) Risk Assessment & Plan Assessment: asa2 Plan: mac Status Change Before Surgery: No Pre-Antibiotics Drug: Kaley Aponte MD Apr 30, 2020 06:41
[2020-04-30] MEDS ORDERED: fentaNYL 100 mcg/2 mL IV PRN (06:45)
[2020-04-30] MEDS ORDERED: Atropine Inj 1mg/10ml Syr IVP PRN (06:45)
[2020-04-30] MEDS ORDERED: Midazolam 2mg/2ml Inj IVP PRN (06:45)
[2020-04-30] MEDS ORDERED: DiphenhydrAMINE 50mg/ml Inj IVP PRN (06:45)
[2020-04-30] MEDS ORDERED: Lidocaine 1% MPF 10mg/ml 5ml ONE (07:00)
[2020-04-30] MEDS ORDERED: NS 500ML IVPB ONE (07:00)
--- NOTE | 2020-04-30 07:02 | NUR ---
NURSE HAND-OFF: Important Events on Shift: foreign object in throat causing pain and discomfort, went to GI lab at 0650 Patient Status: off unit Diet: NPO Pending Orders: Pending Results/Labs: Pending MD notification: Latest Vital Signs: Temperature 97.3 , Pulse 89 , B/P 136 /101 , Respiratory Rate 20 , O2 SAT 99 , Room Air, O2 Flow Rate . Vital Sign Comment: VSS Latest Fitch Fall Score: 20 Fall Risk: Low Risk Safety Measures: Call light Within Reach, Bed Alarm , Side Rails Side Rails x2, Bed position Low and Locked. Fall Precautions: Patient Fall Education Report given to SEGUNDO Coles.
--- NOTE | 2020-04-30 07:03 | Pre-Procedure Note/Attestation ---
Pre-Procedure Note/Attestation Complete Prior to Procedure Planned Procedure: not applicable Procedure Narrative: egd Indications for Procedure Pre-Operative Diagnosis: foreign body Attestation I attest that I discussed the nature of the procedure; its benefits; risks and complications; and alternatives (and the risks and benefits of such alternatives), prior to the procedure, with the patient (or the patient's legal customer loyalty representative). I attest that, if there was a reasonable possibility of needing a blood transfus ion, the patient (or the patient's legal customer loyalty representative) was given the [facility] standardized written summary, pursuant to the [place] Blood Safety Act ([place] Health and Safety Code # 1645, as amended). I attest that I re-evaluated the patient just prior to the surgery and that there has been no change in the patient's H&P, except as documented below: Kenny Lopez MD Apr 30, 2020 07:03
--- NOTE | 2020-04-30 07:14 | Endoscopy Procedure Note ---
Endoscopy Procedure Note General Indication for Procedure: foreign body Procedures Performed: EGD Operative Findings/Diagnosis: same Specimen: yes Pt Tolerated Procedure Well: Yes Estimated Blood Loss: none Anesthesia Anesthesiologist: ekaterina Anesthesia: MAC Inserted Devices Implant(s) used?: No GI Core Measures 50 yrs or older w/o bx or poly: Not Applicable 10yrs. F/U recommended: Not Applicable Kenny Lopez MD Apr 30, 2020 07:14
[2020-04-30 07:18] LABS: HEMATOCRIT 49.4 % (42.0-52.0); HEMOGLOBIN 15.1 G/DL (14.2-18.0); MEAN CORPUSCULAR VOLUME 92 FL (80-99); PLATELET COUNT 313 K/UL (150-450); RED BLOOD COUNT 5.38 M/UL (4.70-6.10); RED CELL DISTRIBUTION WIDTH 14.3 % (11.6-14.8); WHITE BLOOD COUNT 15.5 K/UL (4.8-10.8)
--- NOTE | 2020-04-30 07:31 | NUR ---
NURSE NOTES: Received report from Mitch RAYMOND shift manager. Patient is currently off the unit for an EGD.
--- NOTE | 2020-04-30 07:39 | Immediate Post-Op Evaluation ---
Immediate Post-Op Evalulation Immediate Post-Op Evalulation Procedure: egd w/bx Date of Evaluation: Apr 30, 2020 Time of Evaluation: 07:32 IV Fluids: 350ml 0.9ns Blood Products: none Estimated Blood Loss: negligible Blood Pressure Systolic: 96 Blood Pressure Diastolic: 71 Pulse Rate: 97 Respiratory Rate: 18 O2 Sat by Pulse Oximetry: 95 Temperature (Fahrenheit): 97.3 Pain Score (1-10): 0 Nausea: No Vomiting: No Complications none Patient Status: awake, reacts, patent Hydration Status: adequate Drug: Kaley Aponte MD Apr 30, 2020 07:39
--- NOTE | 2020-04-30 07:42 | 48 Hour Post Anesthesia Eval ---
Post Anesthesia Evaluation Procedure: egd w/bx Date of Evaluation: Apr 30, 2020 Time of Evaluation: 09:34 Blood Pressure Systolic: 111 0: 72 Pulse Rate: 77 Respiratory Rate: 18 Temperature (Fahrenheit): 97.3 O2 Sat by Pulse Oximetry: 95 Airway: patent Nausea: No Vomiting: No Pain Intensity: 0 Hydration Status: adequate Cardiopulmonary Status: stable Mental Status/LOC: patient returned to baseline Post-Anesthesia Complications: none Follow-up care needed: N/A Kaley Lewis MD Apr 30, 2020 07:42
[2020-04-30 07:59] LABS: ANION GAP 9 mmol/L (5-15); BLOOD UREA NITROGEN 28 mg/dL (7-18); CALCIUM 9.1 MG/DL (8.5-10.1); CARBON DIOXIDE 27 MMOL/L (21-32); CHLORIDE 110 MMOL/L (98-107); CREATININE 1.6 MG/DL (0.55-1.30); POTASSIUM 3.6 MMOL/L (3.5-5.1); SODIUM 146 MMOL/L (136-145)
--- NOTE | 2020-04-30 07:59 | Procedure Note ---
DATE OF PROCEDURE: 04/30/2020 SURGEON: Kenny Lopez MD. PROCEDURE: Upper endoscopy with foreign body removal and biopsy. ANESTHESIA: Per Dr. Delgado. INSTRUMENT: Olympus adult flexible upper endoscope. INDICATION: Foreign body ingestion. REASON FOR PROCEDURE: The procedure, risks, benefits, and possible consequences, including hemorrhage, aspiration, perforation and infection, and alternative treatments, were explained to the patient/legal guardian by Dr. Kenny Lopez and the patient/legal guardian understood and accepted these risks. PROCEDURE IN DETAIL: After informed consent was obtained and the patient was adequately sedated, Olympus upper endoscope was advanced from mouth into esophagus. There was piece of steak stuck in the distal esophagus. Using a scope, gently we pushed it back into the stomach. There was evidence of esophagitis from this food getting stuck in the distal esophagus. No obvious distal esophageal stricture seen. At this time, biopsy from distal esophagus was obtained to rule out eosinophilic esophagitis. The rest of upper endoscopic examination grossly within normal limits. SUMMARY OF FINDINGS: 1. Piece of steak stuck in the distal esophagus. 2. Esophagitis from above. 3. Status post biopsy of distal esophagus to evaluate for eosinophilic esophagitis. RECOMMENDATIONS: 1. Resume diet. 2. Okay to discharge from GI standpoint. 3. Needs followup as an outpatient to follow on the biopsy results. I want to thank, Dr. Jeronimo Fleming, for this kind referral. Kenny Lopez M.D. DR: Ayana JOB#: [id number] CC: Bernadette Decker MD
--- NOTE | 2020-04-30 08:15 | NUR ---
NURSE NOTES: telephone report received from Nikolas from GI lab and patient came back to the unit in stable condition. Patient is alert and awake, oriented x4. Patient denies pain or discomfort @ this time. No irritation on throat per patient. Patient is on room air. Noted with dry cough x1 but no bleeding and denies nausea or vomiting. Lung sound is clear. Dr. lopez ordered regular soft easy chew, RN asked Dr. Lopez if clear liquid needs to be started but Dr. Lopez wants soft diet. Patient is able to drink water without discomfort or vomiting and offered food. v/S stable. Call light within reach. Patient is aware when to call nurse. Will continue plan of care.
--- NOTE | 2020-04-30 09:20 | NUR ---
NURSE NOTES: Patient is asleep @ this time. No s/s of distress. Will continue to monitor and follow up with home meds.
--- NOTE | 2020-04-30 09:38 | Consultation ---
History of Present Illness General Chief Complaint: Vomiting Present Illness HPI This is a 29-year-old male with no reported past medical history who was brought in by EMS from home for evaluation of vomiting. He stated he swallowed some steak and he felt it was stuck in his throat. He had multiple episodes of vomiting since then. The soft tissue film shows no obvious evidence of food impaction but patient continued to vomit after oral challenge. Esophagram was performed which confirmed food impaction. On upper endoscopy, there was an evidence of esophagitis from this food getting stuck in the distal esophagus. There was no evidence of distal esophageal stricture. A biopsy from distal esophagus was obtained to rule out eosinophilic esophagitis. Allergies: Coded Allergies: No Known Allergies (Unverified , 04/29/20) Medication History Scheduled Bictegrav/Emtricit/Tenofov Ala (Biktarvy 50-200-25 mg Tablet), 1 EACH PO DAILY, (Reported) Citalopram Hydrobromide* (Citalopram Hbr*), Unknown Dose ORAL DAILY, (Reported) Olanzapine* (Zyprexa*), 10 MG ORAL DAILY, (Reported) Discontinued Medications Efavirenz/Emtricitab/Tenofovir (Atripla Tablet), 1 TAB ORAL DAILY, (Reported) Discontinued Reason: Therapy completed Patient History Healthcare decision maker N Resuscitation status Advanced Directive on File Review of Systems All Other Systems: negative except mentioned in HPI Physical Exam General Appearance: no apparent distress, alert Lines, tubes and drains: peripheral HEENT: normocephalic, atraumatic Neck: non-tender, normal alignment Respiratory/Chest: chest wall non-tender, lungs clear, normal breath sounds Cardiovascular/Chest: normal peripheral pulses, normal rate, regular rhythm Abdomen: normal bowel sounds, non tender, soft Extremities: normal range of motion, non-tender Neurologic: alert, oriented x 3 Last 24 Hour Vital Signs Date Time Temp Pulse Resp B/P (MAP) Pulse Ox O2 Delivery O2 Flow Rate FiO2 04/30/20 09:00 Room Air 04/30/20 08:15 98.0 83 20 117/84 (95) 98 04/30/20 07:42 77 18 95 04/30/20 07:41 85 18 119/78 97 Room Air 04/30/20 07:39 97 18 95 04/30/20 07:31 84 18 114/78 99 Nasal Cannula 2 04/30/20 07:26 81 18 113/80 98 Nasal Cannula 4 04/30/20 07:21 86 18 116/80 100 Nasal Cannula 4 04/30/20 07:16 104 18 111/84 98 Nasal Cannula 6 04/30/20 07:11 100 22 93/62 93 Nasal Cannula 6 04/30/20 04:00 97.3 89 20 136/101 (113) 99 04/29/20 22:06 Room Air 04/29/20 19:11 98.0 04/29/20 17:56 98.0 75 16 105/92 100 Room Air 04/29/20 15:50 98.1 24 112/88 96 Room Air 04/29/20 15:50 114 24 Room Air 04/29/20 15:26 98.1 114 24 112/88 (96) 96 Room Air Laboratory Tests Test 04/29/20 15:38 04/30/20 06:20 White Blood Count 10.1 K/UL (4.8-10.8) 15.5 K/UL (4.8-10.8) #H Red Blood Count 6.40 M/UL (4.70-6.10) H 5.38 M/UL (4.70-6.10) Hemoglobin 17.9 G/DL (14.2-18.0) 15.1 G/DL (14.2-18.0) Hematocrit 58.9 % (42.0-52.0) H 49.4 % (42.0-52.0) Mean Corpuscular Volume 92 FL (80-99) 92 FL (80-99) Mean Corpuscular Hemoglobin 28.0 PG (27.0-31.0) 28.0 PG (27.0-31.0) Mean Corpuscular Hemoglobin Concent 30.4 G/DL (32.0-36.0) L 30.5 G/DL (32.0-36.0) L Red Cell Distribution Width 13.9 % (11.6-14.8) 14.3 % (11.6-14.8) Platelet Count 399 K/UL (150-450) 313 K/UL (150-450) Mean Platelet Volume 8.1 FL (6.5-10.1) 8.1 FL (6.5-10.1) Neutrophils (%) (Auto) 66.8 % (45.0-75.0) % (45.0-75.0) Lymphocytes (%) (Auto) 25.8 % (20.0-45.0) % (20.0-45.0) Monocytes (%) (Auto) 5.1 % (1.0-10.0) % (1.0-10.0) Eosinophils (%) (Auto) 1.2 % (0.0-3.0) % (0.0-3.0) Basophils (%) (Auto) 1.1 % (0.0-2.0) % (0.0-2.0) Prothrombin Time 11.9 SEC (9.30-11.50) H Prothromb Time International Ratio 1.1 (0.9-1.1) Activated Partial Thromboplast Time 24 SEC (23-33) Sodium Level 143 MMOL/L (136-145) 146 MMOL/L (136-145) H Potassium Level 4.1 MMOL/L (3.5-5.1) 3.6 MMOL/L (3.5-5.1) Chloride Level 104 MMOL/L (98-107) 110 MMOL/L (98-107) H Carbon Dioxide Level 27 MMOL/L (21-32) 27 MMOL/L (21-32) Anion Gap 12 mmol/L (5-15) 9 mmol/L (5-15) Blood Urea Nitrogen 30 mg/dL (7-18) H 28 mg/dL (7-18) H Creatinine 2.6 MG/DL (0.55-1.30) H 1.6 MG/DL (0.55-1.30) H Estimat Glomerular Filtration Rate 36.1 mL/min (>60) > 60 mL/min (>60) Glucose Level 144 MG/DL (74-106) H 105 MG/DL (74-106) Calcium Level 10.8 MG/DL (8.5-10.1) H 9.1 MG/DL (8.5-10.1) Total Bilirubin 1.5 MG/DL (0.2-1.0) H Direct Bilirubin 0.2 MG/DL (0.0-0.3) Aspartate Amino Transf (AST/SGOT) 22 U/L (15-37) Alanine Aminotransferase (ALT/SGPT) 35 U/L (12-78) Alkaline Phosphatase 101 U/L (46-116) Total Protein 11.1 G/DL (6.4-8.2) H Albumin 5.2 G/DL (3.4-5.0) H Globulin 5.9 g/dL Albumin/Globulin Ratio 0.9 (1.0-2.7) L Lipase 140 U/L (73-393) Differential Total Cells Counted 100 Neutrophils % (Manual) 79 % (45-75) H Lymphocytes % (Manual) 11 % (20-45) L Monocytes % (Manual) 10 % (1-10) Eosinophils % (Manual) 0 % (0-3) Basophils % (Manual) 0 % (0-2) Band Neutrophils 0 % (0-8) Platelet Estimate Adequate Platelet Morphology Normal Red Blood Cell Morphology Normal Phosphorus Level 2.0 MG/DL (2.5-4.9) L Magnesium Level 2.2 MG/DL (1.8-2.4) Height (Feet): 5 Height (Inches): 10 Weight (Pounds): 154 Medications Current Medications Medications (Trade) Dose Ordered Sig/Arsh Route PRN Reason Start Time Stop Time Status Last Admin Dose Admin Acetaminophen (Tylenol) 650 mg Q4H PRN ORAL Mild Pain (Pain Scale 1-3) 04/29/20 21:30 05/29/20 21:29 Barium Sulfate (Barium EZ Gas II) 1 ea NOW PRN Radiology Procedure 04/29/20 16:45 05/02/20 16:44 Barium Sulfate (Barium EZ HD) 1 ea NOW PRN Radiology Procedure 04/29/20 16:45 05/02/20 16:44 Barium Sulfate (Varibar Thin Liquid powder) 148 gm NOW PRN Radiology Procedure 04/29/20 16:45 05/02/20 16:44 Dextrose/Sodium Chloride 1,000 ml @ 75 mls/hr [id number] IV 04/29/20 21:30 05/29/20 21:29 04/29/20 21:53 Morphine Sulfate (Morphine Sulfate) 2 mg Q3H PRN IVP Severe Pain (Pain Scale 7-10) 04/30/20 02:00 05/07/20 01:59 04/30/20 05:33 Ondansetron HCl (Zofran) 4 mg Q4H PRN IVP Nausea & Vomiting 04/29/20 21:30 05/29/20 21:29 Assessment/Plan Diagnosis [place] I: # food impaction. On upper endoscopy, there was an evidence of esophagitis from this food getting stuck in the distal esophagus. There was no evidence of distal esophageal stricture. A biopsy from distal esophagus was obtained to rule out eosinophilic esophagitis. - pain control - monitor leukocytosis - DC planning tomorrow Bernadette Decker M.D. Apr 30, 2020 09:38
--- NOTE | 2020-04-30 10:00 | NUR ---
NURSE NOTES: Dr. Decker made his round and RN informed Dr. Decker of abnormal lab result of wbc of 15.5, patient is afebrile, phosphorus of 2.0 and sodium level of 146 with no new order.
[2020-04-30] MEDS: D5 1/2NS 1,000 ML IV SCH (11:11)
--- NOTE | 2020-04-30 12:10 | NUR ---
NURSE NOTES: Patient's temp is 100.0 oral and patient complains of chills. RN assessed patient,lung sound is clean but noted with dry coughx1, denies pain or discomfort. Patient is alert and oriented x4, verbally responsive. V/S stable except temp. O2sat is 98% in room air. cooling measures done. RN informed Dr. Decker and relayed patient's condition and received new order to do chest x-ray, blood culture, covid test and to start zosyn. Patient is not allergic to any medications. Patient is aware of plan of care. Will continue to monitor.
--- NOTE | 2020-04-30 13:28 | NUR ---
CASE MANAGEMENT:REVIEW 29 YR OLD MALE DOROTHEA CC: VOMITING AFTER EATING SI: ESOPHAGEAL OBSTRUCTION. DEHYDRATION 98.0 114 24 112/88 96% ON RA BUN+30 CR+2.6 GLUCOSE+144 IS: IV ZOFRAN X2 IV PEPCID 1L NS BOLUS X2 IV TORADOL IV GLUCAGON XRAY [id number] : TO MED/SURG 04/30/20 SI: ESOPHAGEAL OBSTRUCTION D/T FOOD 98.1 90 20 129/89 98% ON RA IS: UPPER ENDOSCOPY FOR TODAY IV ZOSYN Q8HRS IVF@75/HR IV MORPHINE Q3HRS PRN : MED/SURG STATUS DCP: FROM HOME SOFT DIET CHEST XRAY BLOOD CX Addendum: 04/30/20 at 1349 by CARMELO WALTER LVN LVN 04/30/20 WBC+15.5
--- NOTE | 2020-04-30 13:40 | NUR ---
NURSE NOTES: rechecked temp 99.7 oral. Chest x-ray done and blood was drawn for culture. Patient's mom spoke to the patient on the phone.
--- NOTE | 2020-04-30 13:41 | Consultation ---
Consult Note Consult Note DATE OF CONSULTATION: 04/30/2020 CONSULTING PHYSICIAN: Clinton Hernandez MD. ATTENDING PHYSICIAN: Dr. Decker REASON FOR CONSULTATION: Aspiration risk HISTORY OF PRESENT ILLNESS: This is a 29-year-old male with no reported past medical history who was brought in by EMS from home for evaluation of vomiting. He stated he swallowed some steak and he felt it was stuck in his throat. He had multiple episodes of vomiting since then. The soft tissue film shows no obvious evidence of food impaction but patient continued to vomit after oral challenge. Esophagram was performed which confirmed food impaction. On upper endoscopy, there was an evidence of esophagitis from this food getting stuck in the distal esophagus. There was no evidence of distal esophageal stricture. A biopsy from distal esophagus was obtained to rule out eosinophilic esophagitis. Pulmonary medicine have been consulted given multiple vomiting episodes with aspiration risk. Currently patient's white cells are elevated but patient remains afebrile. PAST MEDICAL HISTORY: HIV MEDICATIONS: Atripla ALLERGIES: No known allergies FAMILY HISTORY: Unknown PERSONAL/SOCIAL HISTORY: Patient is from home REVIEW OF SYSTEMS: Negative except mentioned in HPI PHYSICAL EXAMINATION: VITAL SIGNS: Blood pressure 129/89, heart rate 90, respiratory rate 20, weight 70 kg, height 178 cm. General: Patient laying in bed, NAD, normal work of breathing HEENT: Head exam reveals that the head is normocephalic, atraumatic without deformity or unusual swelling. Pupils are PERRLA. CHEST AND LUNGS: Reveals clear, normal, symmetrical breath sounds with no adventitious sounds. CARDIOVASCULAR: Reveals normal S1, S2 without murmurs, rubs, or clicks. ABDOMEN: Soft with no tenderness or organomegaly. RECTAL: Deferred. MUSCULOSKELETAL: There is no tenderness to palpation. Range of motion is normal. NEUROLOGICAL: Alert and oriented x3 , nonfocal LABORATORY DATA: Laboratory testing shows WBC 15.5. Chemistries show sodium 146, chloride 110, BUN 28, creatinine 1.6 Assessment/Plan 1. NIRALI, likely from dehydration 2. Emesis - s/p endoscopy with removal of foreign body and biopsy -Patient is to follow-up with GI for biopsy results 3. Possible aspiration pneumonitis -WBC 15.5 -> On Abx -Monitor for fever The care for this patient was discussed with my supervising physician. Time spent for this case was approximately 31 minutes. Stef Gilman Apr 30, 2020 13:41
--- NOTE | 2020-04-30 13:42 | NUR ---
NURSE NOTES: collected specimen for covid and sent it to lab. Rn educated patient on PUI and patient agreed with hospital policy for isolation.
--- NOTE | 2020-04-30 13:44 | Diagnostic Imaging Report ---
INDICATION: Esophageal foreign body sensation after eating steak TECHNIQUE: Patient ingested thin liquid barium under live fluoroscopy and fluoroscopic and static images were obtained Fluoroscopy time: 83.4 seconds Total dose: [id number] mGym2 Total number of images: 3 COMPARISON: None FINDINGS: Exam was technically limited as patient needed to read should immediately after swallowing. However, images do demonstrate complete obstruction of forward propulsion of contrast in the proximal thoracic esophagus, with a meniscus indicating a foreign body IMPRESSION: Positive for evidence of impacted proximal thoracic esophageal foreign body, as described. Findings discussed by phone with Dr. Gallardo when the exam was performed
--- NOTE | 2020-04-30 14:03 | NUR ---
RADIOLOGY DEPT., CHEST X-RAY DONE.-P.DYE
--- NOTE | 2020-04-30 14:38 | NUR ---
INSURANCE CLINICAL/REVIEW FAXED TO [facility]#[phone] fax#[phone]
[2020-04-30] MEDS: Piperacillin/Tazobactam 3.375 GM in NS 110 ML IVPB SCH ×2 (14:40→21:00)
--- NOTE | 2020-04-30 14:49 | Diagnostic Imaging Report ---
Indication: Cough Technique: One view of the chest Comparison: 04/29/2020 Findings: The lungs and pleural spaces are clear. The heart size is normal. Previously demonstrated retained proximal esophageal barium is no longer present Impression: No acute process
--- NOTE | 2020-04-30 15:47 | NUR ---
NURSE NOTES: Patient is tolerating well to zosyn. Will continue to monitor.
--- NOTE | 2020-04-30 17:14 | Consultation ---
History of Present Illness General Date patient seen: Apr 30, 2020 Reason for Hospitalization: Vomiting Present Illness HPI 29-year-old male presents for vomiting. Brought in by EMS from home. States that this morning he swallowed some steak and states he feels stuck in his throat. Multiple episodes of vomiting. Pain discomfort in his throat. Dull, 8 out of 10, nonradiating. Denies chest pain. Denies shortness of breath. No other aggravating relieving factors. Denies any other associated symptoms. Surgery called to evaluate assist with care patient seen patient evaluated chart reviewed. No abdominal discomfort just states feels fullness in his throat. Plan for endoscopy. Allergies: Coded Allergies: No Known Allergies (Unverified , 04/29/20) COVID-19 Screening Contact w/high risk pt: No Recent Travel to affected area: No Experienced COVID-19 symptoms?: No Coronavirus symptoms experienc: Nausea/Vomiting Medication History Scheduled Efavirenz/Emtricitab/Tenofovir (Atripla Tablet), 1 TAB ORAL DAILY, (Reported) Patient History History Provided By: Patient, Medical Record, PMD Healthcare decision maker N Resuscitation status Advanced Directive on File Past Medical/Surgical History Past Medical/Surgical History: (1) Acute upper respiratory infection (2) Cough (3) Nasal congestion (4) pharyngitis (5) Impacted third molar tooth (6) Toothache (7) Encounter for assessment of STD exposure (8) Urethritis, unspecified (9) Dehydration (10) Esophageal obstruction due to food impaction Review of Systems Review of Symptoms General ROS: no weight loss or fever Psychological ROS: no depression or mood changes, no memory loss Ophthalmic ROS: no visual changes or eye irritation ENT ROS: no nasal congestion, hearing loss, dizziness Allergy and Immunology ROS: no allergic symptoms or urticaria Hematological and Lymphatic ROS: no swollen glands, unusual bleeding or bruising Endocrine ROS: no polyuria, polydipsia, weight changes, temperature intolerance Respiratory ROS: no cough, shortness of breath, or wheezing Cardiovascular ROS: no chest pain or dyspnea on exertion Gastrointestinal ROS: denies abdominal pain, bright red blood in stool. Musculoskeletal ROS: no myalgias or arthralgias Neurological ROS: no TIA or stroke symptoms Dermatological ROS: no new or changing skin lesions, rashes or pruritis Physical Exam Physical Exam General appearance: alert, cooperative, no distress, appears stated age Head: Normocephalic, without obvious abnormality, atraumatic Eyes: conjunctivae/corneas clear. PERRL, EOM's intact. Fundi benign Throat: Lips, mucosa, and tongue normal. Teeth and gums normal Neck: supple, symmetrical, trachea midline, no adenopathy, thyroid: not enlarged, symmetric, no tenderness/mass/nodules, no carotid bruit and no JVD Lungs: clear to auscultation bilaterally Heart: regular rate and rhythm, S1, S2 normal, no murmur, click, rub or gallop Abdomen: soft, non-tender. Bowel sounds normal. No masses, no organomegaly Extremities: extremities normal, atraumatic, no cyanosis or edema Pulses: 2+ and symmetric Skin: Skin color, texture, turgor normal. No rashes or lesions Neurologic: Grossly normal Last 24 Hour Vital Signs Date Time Temp Pulse Resp B/P (MAP) Pulse Ox O2 Delivery O2 Flow Rate FiO2 04/30/20 16:00 98.8 88 20 113/63 (80) 99 04/30/20 13:40 99.7 04/30/20 12:00 100.0 91 20 117/69 (85) 98 04/30/20 09:25 98.1 90 20 129/89 (102) 98 04/30/20 09:00 Room Air 04/30/20 08:15 98.0 83 20 117/84 (95) 98 04/30/20 07:42 77 18 95 04/30/20 07:41 85 18 119/78 97 Room Air 04/30/20 07:39 97 18 95 04/30/20 07:31 84 18 114/78 99 Nasal Cannula 2 04/30/20 07:26 81 18 113/80 98 Nasal Cannula 4 04/30/20 07:21 86 18 116/80 100 Nasal Cannula 4 04/30/20 07:16 104 18 111/84 98 Nasal Cannula 6 04/30/20 07:11 100 22 93/62 93 Nasal Cannula 6 04/30/20 04:00 97.3 89 20 136/101 (113) 99 04/29/20 22:06 Room Air 04/29/20 19:11 98.0 04/29/20 17:56 98.0 75 16 105/92 100 Room Air Intake and Output 04/29/20 04/30/20 19:00 07:00 # Voids 1 Laboratory Tests Test 04/30/20 06:20 White Blood Count 15.5 K/UL (4.8-10.8) #H Red Blood Count 5.38 M/UL (4.70-6.10) Hemoglobin 15.1 G/DL (14.2-18.0) Hematocrit 49.4 % (42.0-52.0) Mean Corpuscular Volume 92 FL (80-99) Mean Corpuscular Hemoglobin 28.0 PG (27.0-31.0) Mean Corpuscular Hemoglobin Concent 30.5 G/DL (32.0-36.0) L Red Cell Distribution Width 14.3 % (11.6-14.8) Platelet Count 313 K/UL (150-450) Mean Platelet Volume 8.1 FL (6.5-10.1) Neutrophils (%) (Auto) % (45.0-75.0) Lymphocytes (%) (Auto) % (20.0-45.0) Monocytes (%) (Auto) % (1.0-10.0) Eosinophils (%) (Auto) % (0.0-3.0) Basophils (%) (Auto) % (0.0-2.0) Differential Total Cells Counted 100 Neutrophils % (Manual) 79 % (45-75) H Lymphocytes % (Manual) 11 % (20-45) L Monocytes % (Manual) 10 % (1-10) Eosinophils % (Manual) 0 % (0-3) Basophils % (Manual) 0 % (0-2) Band Neutrophils 0 % (0-8) Platelet Estimate Adequate Platelet Morphology Normal Red Blood Cell Morphology Normal Sodium Level 146 MMOL/L (136-145) H Potassium Level 3.6 MMOL/L (3.5-5.1) Chloride Level 110 MMOL/L (98-107) H Carbon Dioxide Level 27 MMOL/L (21-32) Anion Gap 9 mmol/L (5-15) Blood Urea Nitrogen 28 mg/dL (7-18) H Creatinine 1.6 MG/DL (0.55-1.30) H Estimat Glomerular Filtration Rate > 60 mL/min (>60) Glucose Level 105 MG/DL (74-106) Calcium Level 9.1 MG/DL (8.5-10.1) Phosphorus Level 2.0 MG/DL (2.5-4.9) L Magnesium Level 2.2 MG/DL (1.8-2.4) Height (Feet): 5 Height (Inches): 10 Weight (Pounds): 154 Medications Current Medications Medications (Trade) Dose Ordered Sig/Arsh Route PRN Reason Start Time Stop Time Status Last Admin Dose Admin Acetaminophen (Tylenol) 650 mg Q4H PRN ORAL Mild Pain (Pain Scale 1-3) 04/29/20 21:30 05/29/20 21:29 Acetaminophen (Tylenol) 650 mg Q4H PRN ORAL Temp >100.5 04/30/20 11:45 05/30/20 11:44 Barium Sulfate (Barium EZ Gas II) 1 ea NOW PRN Radiology Procedure 04/29/20 16:45 05/02/20 16:44 Barium Sulfate (Barium EZ HD) 1 ea NOW PRN Radiology Procedure 04/29/20 16:45 05/02/20 16:44 Barium Sulfate (Varibar Thin Liquid powder) 148 gm NOW PRN Radiology Procedure 04/29/20 16:45 05/02/20 16:44 Dextrose/Sodium Chloride 1,000 ml @ 75 mls/hr [id number] IV 04/29/20 21:30 05/29/20 21:29 04/30/20 11:11 Morphine Sulfate (Morphine Sulfate) 2 mg Q3H PRN IVP Severe Pain (Pain Scale 7-10) 04/30/20 02:00 05/07/20 01:59 04/30/20 05:33 Ondansetron HCl (Zofran) 4 mg Q4H PRN IVP Nausea & Vomiting 04/29/20 21:30 05/29/20 21:29 Piperacillin Sod/ Tazobactam Sod 3.375 gm/Sodium Chloride 110 ml @ 27.5 mls/hr EVERY 8 HOURS IVPB 04/30/20 14:00 05/05/20 13:59 04/30/20 14:40 Assessment/Plan Problem List: (1) Dehydration ICD Codes: E86.0 - Dehydration SNOMED: 76976781 (2) Toothache ICD Codes: K08.89 - Other specified disorders of teeth and supporting structures SNOMED: 94819910 (3) Impacted third molar tooth ICD Codes: K01.1 - Impacted teeth SNOMED: 549030564 (4) Urethritis, unspecified ICD Codes: N34.2 - Other urethritis SNOMED: 76298412 (5) Esophageal obstruction due to food impaction Assessment & Plan: 29-year-old male esophageal obstruction from food impaction. Patient seen patient evaluated chart reviewed discussion had with patient. Recommend attempting GI evaluation with endoscopy first. Following this if unable to can surgically retrieve if necessary otherwise will allow passage into the GI tract and and evacuation once appropriate. If obstructed in any point can also intervene. No acute surgical intervention planned. Follow-up EGD with GI. Will follow with recommendations. Imaging reviewed chart reviewed thank you for letting participate patient's care Exam was technically limited as patient needed to read should immediately after swallowing. However, images do demonstrate complete obstruction of forward propulsion of contrast in the proximal thoracic esophagus, with a meniscus indicating a foreign body IMPRESSION: Positive for evidence of impacted proximal thoracic esophageal foreign body, as described. ICD Codes: K22.2 - Esophageal obstruction; T18.128A - Food in esophagus causing other injury, initial encounter SNOMED: 259077793 (6) Encounter for assessment of STD exposure ICD Codes: Z76.89 - Persons encountering health services in other specified circumstances SNOMED: 591740763 (7) Acute upper respiratory infection (8) Cough (9) Nasal congestion (10) pharyngitis Cordell Cloud Apr 30, 2020 17:13
--- NOTE | 2020-04-30 17:43 | NUR ---
NURSE NOTES: Patient is afebrile. Patient requested chopped diet. Patient stated that " I want chopped diet. I was able to swallow meat earlier but it hurt me." Patient denied food impaction. RN informed Dr. Lopez and he agreed to change diet to chopped diet. Patient denies nausea or vomiting.
--- NOTE | 2020-04-30 18:00 | NUR ---
NURSE NOTES: home meds list given to pharmacy.
[2020-04-30] MEDS ORDERED: ZYPREXA10 MG ORAL (19:09)
[2020-04-30] MEDS ORDERED: CITALOPRAM HBR10 M1 ORAL (19:09)
[2020-04-30] MEDS ORDERED: BIKTARVY 50-201 EACH PO (19:09)
--- NOTE | 2020-04-30 19:36 | NUR ---
NURSE HAND-OFF: Important Events on Shift: s/p EGD, episodes of fever, covid test done PUI, blood culture done Patient Status: stable Diet: mech soft chopped Pending Orders: Pending Results/Labs: Pending MD notification: Latest Vital Signs: Temperature 98.8 , Pulse 88 , B/P 113 /63 , Respiratory Rate 20 , O2 SAT 99 , Room Air, O2 Flow Rate 2 . Vital Sign Comment: Latest Fitch Fall Score: 20 Fall Risk: Low Risk Safety Measures: Call light Within Reach, Bed Alarm Zone 1, Side Rails Side Rails x2, Bed position Low and Locked. Fall Precautions: Patient Fall Education Report given to Jairo and endorsed plan of care.
--- NOTE | 2020-04-30 19:45 | NUR ---
NURSE NOTES: Received report from Sanket RAYMOND. Patient is awake, alert and oriented x4. On room air, breathing is even and unlabored. No complains of pain or distress noted. No N/V. IV left AC intact and patent with no bleeding noted. IVF running as ordered. Temp 99.1. Bed low and locked. Call light within reach.
[2020-05-01] VITALS: BP 119/76
[2020-05-01] MEDS: D5 1/2NS 1,000 ML IV SCH ×2 (00:46→13:39)
[2020-05-01 04:00] VITALS: BP 106/63
[2020-05-01] MEDS: Piperacillin/Tazobactam 3.375 GM in NS 110 ML IVPB SCH ×2 (05:00→13:39)
[2020-05-01 06:10] LABS: BASOPHILS % (AUTO) 0.6 % (0.0-2.0); EOSINOPHILS % (AUTO) 1.9 % (0.0-3.0); HEMATOCRIT 37.7 % (42.0-52.0); HEMOGLOBIN 11.9 G/DL (14.2-18.0); LYMPHOCYTES % (AUTO) 19.3 % (20.0-45.0); MEAN CORPUSCULAR VOLUME 90 FL (80-99); MONOCYTES % (AUTO) 5.4 % (1.0-10.0); NEUTROPHILS % (AUTO) 72.8 % (45.0-75.0); PLATELET COUNT 228 K/UL (150-450); RED BLOOD COUNT 4.18 M/UL (4.70-6.10); WHITE BLOOD COUNT 13.2 K/UL (4.8-10.8)
[2020-05-01 06:18] LABS: ANION GAP 6 mmol/L (5-15); BLOOD UREA NITROGEN 10 mg/dL (7-18); CALCIUM 8.2 MG/DL (8.5-10.1); CARBON DIOXIDE 27 MMOL/L (21-32); CHLORIDE 104 MMOL/L (98-107); CREATININE 1.3 MG/DL (0.55-1.30); PHOSPHORUS 2.7 MG/DL (2.5-4.9); POTASSIUM 3.5 MMOL/L (3.5-5.1); SODIUM 137 MMOL/L (136-145)
--- NOTE | 2020-05-01 07:30 | NUR ---
NURSE HAND-OFF: Important Events on Shift: IV hydration with zosyn Patient Status: Stable Diet: Soft mechanical chopped Pending Orders: [] Pending Results/Labs:[] Pending MD notification:[] Latest Vital Signs: Temperature 97.5 , Pulse 68 , B/P 106 /63 , Respiratory Rate 17 , O2 SAT 98 , Room Air, O2 Flow Rate 2 . Vital Sign Comment: VS stable Latest Fitch Fall Score: 20 Fall Risk: Low Risk Safety Measures: Call light Within Reach, Bed Alarm Zone 1, Side Rails Side Rails x2, Bed position Low and Locked. Fall Precautions: Patient Fall Education Report given to Diane RAYMOND.
--- NOTE | 2020-05-01 07:34 | NUR ---
CASE MANAGEMENT:REVIEW 05/01/20 SI: ESOPHAGEAL OBSTRUCTION. S/P EGD 97.5 68 17 106/63 98% ON RA WBC+13.2 IS: IV ZOSYN Q8HRS IV MORPHINE Q3HRS PRN IVF@75/HR : MED/SURG STATUS DCP: FROM HOME PLAN: DISCHARGE WAS HELD YESTERDAY D/T WBC'S 15.2,TEMP 100.0 AND CONCERN OF POSSIBLE ASPIRATION PNEUMONIA SOFT DIET MD WILL RE-EVALUATE TODAY WHEN HE MAKES ROUNDS
[2020-05-01 08:00] VITALS: BP 125/67
--- NOTE | 2020-05-01 08:06 | NUR ---
NURSE NOTES: Patient sleepy, on room air, no sing of distress and shortness of breath; no sing of chest pain; IV LAC D51/2NS 75cc running; Urinal within reach; side rails up x2, breaks engaged, bed at lowest position; will keep monitoring.
--- NOTE | 2020-05-01 08:16 | General Progress Note ---
Subjective ROS Limited/Unobtainable: Yes Allergies: Coded Allergies: No Known Allergies (Unverified , 04/29/20) Objective Last 24 Hour Vital Signs Date Time Temp Pulse Resp B/P (MAP) Pulse Ox O2 Delivery O2 Flow Rate FiO2 05/01/20 04:00 97.5 68 17 106/63 (77) 98 05/01/20 00:00 97.9 72 17 119/76 (90) 99 04/30/20 21:00 Room Air 04/30/20 20:00 99.1 82 17 115/62 (79) 98 04/30/20 16:00 98.8 88 20 113/63 (80) 99 04/30/20 13:40 99.7 04/30/20 12:00 100.0 91 20 117/69 (85) 98 04/30/20 09:25 98.1 90 20 129/89 (102) 98 04/30/20 09:00 Room Air Intake and Output 04/30/20 05/01/20 19:00 07:00 Intake Total 532.5 ml 1100 ml Balance 532.5 ml 1100 ml Intake Oral 240 ml IV Total 532.5 ml 860 ml # Voids 3 3 Laboratory Tests 05/01/20 05:15: White Blood Count 13.2H, Red Blood Count 4.18L, Hemoglobin 11.9L, Hematocrit 37.7L, Mean Corpuscular Volume 90, Mean Corpuscular Hemoglobin 28.4, Mean Corpuscular Hemoglobin Concent 31.4L, Red Cell Distribution Width 14.0, Platelet Count 228, Mean Platelet Volume 7.8, Neutrophils (%) (Auto) 72.8, Lymphocytes (%) (Auto) 19.3L, Monocytes (%) (Auto) 5.4, Eosinophils (%) (Auto) 1.9, Basophils (%) (Auto) 0.6, Sodium Level 137, Potassium Level 3.5, Chloride Level 104, Carbon Dioxide Level 27, Anion Gap 6, Blood Urea Nitrogen 10, Creatinine 1.3, Estimat Glomerular Filtration Rate > 60, Glucose Level 98, Calcium Level 8.2L, Phosphorus Level 2.7, Magnesium Level 1.6L Height (Feet): 5 Height (Inches): 10 Weight (Pounds): 154 General Appearance: no apparent distress EENT: normal ENT inspection Neck: supple Cardiovascular: normal rate Respiratory/Chest: decreased breath sounds Abdomen: normal bowel sounds, non tender, soft Extremities: non-tender Assessment/Plan Assessment/Plan: s/p EGD yesterday SUMMARY OF FINDINGS: 1. Piece of steak stuck in the distal esophagus. 2. Esophagitis from above. 3. Status post biopsy of distal esophagus to evaluate for eosinophilic esophagitis. RECOMMENDATIONS: 1. Resume diet. 2. Okay to discharge from GI standpoint. 3. Needs followup as an outpatient to follow on the biopsy results. Kenny Lopez MD May 01, 2020 08:16
--- NOTE | 2020-05-01 09:35 | NUR ---
NURSE NOTES: There is a discharge order for this patient; I spoke to MD Decker that this patient swapped for COVID-19 since 04/30/20 and we waiting for the result; MD Decker said patient is on room and we don't need to wait for the result; MD Decker said OK to discharge. Change nurse Shay is aware.
[2020-05-01] MEDS: Morphine Sulfate 2mg/ml Inj(IV/IM USE ONLY) IVP PRN (10:51)
[2020-05-01 12:00] VITALS: BP 106/63
--- NOTE | 2020-05-01 12:41 | Surgery Progress Note ---
Surgery Progress Note Subjective Additional Comments doing well still cant take in very solid food for sore throat. no n/v Objective Last 24 Hour Vital Signs Date Time Temp Pulse Resp B/P (MAP) Pulse Ox O2 Delivery O2 Flow Rate FiO2 05/01/20 12:00 97.3 63 18 106/63 (77) 100 05/01/20 11:21 97.5 05/01/20 09:00 Room Air 05/01/20 08:00 97.5 68 18 125/67 (86) 99 05/01/20 04:00 97.5 68 17 106/63 (77) 98 05/01/20 00:00 97.9 72 17 119/76 (90) 99 04/30/20 21:00 Room Air 04/30/20 20:00 99.1 82 17 115/62 (79) 98 04/30/20 16:00 98.8 88 20 113/63 (80) 99 04/30/20 13:40 99.7 I&O Intake and Output 04/30/20 05/01/20 19:00 07:00 Intake Total 532.5 ml 1175 ml Balance 532.5 ml 1175 ml Intake Oral 240 ml IV Total 532.5 ml 935 ml # Voids 3 3 Cardiovascular: RSR Respiratory: clear Abdomen: soft, flat, non-tender, present bowel sounds, non-distended Extremities: no edema, no tenderness, no cyanosis Laboratory Tests Test 05/01/20 05:15 White Blood Count 13.2 K/UL (4.8-10.8) H Red Blood Count 4.18 M/UL (4.70-6.10) L Hemoglobin 11.9 G/DL (14.2-18.0) L Hematocrit 37.7 % (42.0-52.0) L Mean Corpuscular Volume 90 FL (80-99) Mean Corpuscular Hemoglobin 28.4 PG (27.0-31.0) Mean Corpuscular Hemoglobin Concent 31.4 G/DL (32.0-36.0) L Red Cell Distribution Width 14.0 % (11.6-14.8) Platelet Count 228 K/UL (150-450) Mean Platelet Volume 7.8 FL (6.5-10.1) Neutrophils (%) (Auto) 72.8 % (45.0-75.0) Lymphocytes (%) (Auto) 19.3 % (20.0-45.0) L Monocytes (%) (Auto) 5.4 % (1.0-10.0) Eosinophils (%) (Auto) 1.9 % (0.0-3.0) Basophils (%) (Auto) 0.6 % (0.0-2.0) Sodium Level 137 MMOL/L (136-145) Potassium Level 3.5 MMOL/L (3.5-5.1) Chloride Level 104 MMOL/L (98-107) Carbon Dioxide Level 27 MMOL/L (21-32) Anion Gap 6 mmol/L (5-15) Blood Urea Nitrogen 10 mg/dL (7-18) Creatinine 1.3 MG/DL (0.55-1.30) Estimat Glomerular Filtration Rate > 60 mL/min (>60) Glucose Level 98 MG/DL (74-106) Calcium Level 8.2 MG/DL (8.5-10.1) L Phosphorus Level 2.7 MG/DL (2.5-4.9) Magnesium Level 1.6 MG/DL (1.8-2.4) L Plan Problems: (1) Dehydration (2) Toothache (3) Impacted third molar tooth (4) Urethritis, unspecified (5) Esophageal obstruction due to food impaction Assessment & Plan: 29-year-old male esophageal obstruction from food impaction. Patient seen patient evaluated chart reviewed discussion had with patient. Recommend attempting GI evaluation with endoscopy first. Following this if unable to can surgically retrieve if necessary otherwise will allow passage into the GI tract and and evacuation once appropriate. If obstructed in any point can also intervene. No acute surgical intervention planned. Follow-up EGD with GI. Will follow with recommendations. Imaging reviewed chart reviewed thank you for letting participate patient's care Exam was technically limited as patient needed to read should immediately after swallowing. However, images do demonstrate complete obstruction of forward propulsion of contrast in the proximal thoracic esophagus, with a meniscus indicating a foreign body IMPRESSION: Positive for evidence of impacted proximal thoracic esophageal foreign body, as described. diet as tolerated d/c planning outpatient gi f/u (6) Encounter for assessment of STD exposure (7) Acute upper respiratory infection (8) Cough (9) Nasal congestion (10) pharyngitis Cordell Cloud May 01, 2020 12:41
--- NOTE | 2020-05-01 13:45 | Pulmonology Progress Note ---
Subjective ROS Limited/Unobtainable: Yes Constitutional: Denies: fever, chills HEENT: Repors: other - throat pain since EGD; improving Respiratory: Reports: no symptoms Cardiovascular: Reports: no symptoms Gastrointestinal/Abdominal: Reports: no symptoms Genitourinary: Reports: no symptoms Allergies: Coded Allergies: No Known Allergies (Unverified , 04/29/20) Objective Last 24 Hour Vital Signs Date Time Temp Pulse Resp B/P (MAP) Pulse Ox O2 Delivery O2 Flow Rate FiO2 05/01/20 12:00 97.3 63 18 106/63 (77) 100 05/01/20 11:21 97.5 05/01/20 09:00 Room Air 05/01/20 08:00 97.5 68 18 125/67 (86) 99 05/01/20 04:00 97.5 68 17 106/63 (77) 98 05/01/20 00:00 97.9 72 17 119/76 (90) 99 04/30/20 21:00 Room Air 04/30/20 20:00 99.1 82 17 115/62 (79) 98 04/30/20 16:00 98.8 88 20 113/63 (80) 99 Intake and Output 04/30/20 05/01/20 19:00 07:00 Intake Total 532.5 ml 1175 ml Balance 532.5 ml 1175 ml Intake Oral 240 ml IV Total 532.5 ml 935 ml # Voids 3 3 General Appearance: no acute distress HEENT: atraumatic Respiratory: lungs clear Cardiovascular: normal rate Abdomen: soft, non tender, no organomegaly Laboratory Tests 05/01/20 05:15: White Blood Count 13.2H, Red Blood Count 4.18L, Hemoglobin 11.9L, Hematocrit 37.7L, Mean Corpuscular Volume 90, Mean Corpuscular Hemoglobin 28.4, Mean Corpuscular Hemoglobin Concent 31.4L, Red Cell Distribution Width 14.0, Platelet Count 228, Mean Platelet Volume 7.8, Neutrophils (%) (Auto) 72.8, Lymphocytes (%) (Auto) 19.3L, Monocytes (%) (Auto) 5.4, Eosinophils (%) (Auto) 1.9, Basophils (%) (Auto) 0.6, Sodium Level 137, Potassium Level 3.5, Chloride Level 104, Carbon Dioxide Level 27, Anion Gap 6, Blood Urea Nitrogen 10, Creatinine 1.3, Estimat Glomerular Filtration Rate > 60, Glucose Level 98, Calcium Level 8.2L, Phosphorus Level 2.7, Magnesium Level 1.6L Current Medications Medications (Trade) Dose Ordered Sig/Arsh Route PRN Reason Start Time Stop Time Status Last Admin Dose Admin Acetaminophen (Tylenol) 650 mg Q4H PRN ORAL Mild Pain (Pain Scale 1-3) 04/29/20 21:30 05/29/20 21:29 Acetaminophen (Tylenol) 650 mg Q4H PRN ORAL Temp >100.5 04/30/20 11:45 05/30/20 11:44 Barium Sulfate (Barium EZ Gas II) 1 ea NOW PRN Radiology Procedure 04/29/20 16:45 05/02/20 16:44 Barium Sulfate (Barium EZ HD) 1 ea NOW PRN Radiology Procedure 04/29/20 16:45 05/02/20 16:44 Barium Sulfate (Varibar Thin Liquid powder) 148 gm NOW PRN Radiology Procedure 04/29/20 16:45 05/02/20 16:44 Dextrose/Sodium Chloride 1,000 ml @ 75 mls/hr [id number] IV 04/29/20 21:30 05/29/20 21:29 05/01/20 13:39 Morphine Sulfate (Morphine Sulfate) 2 mg Q3H PRN IVP Severe Pain (Pain Scale 7-10) 04/30/20 02:00 05/07/20 01:59 05/01/20 10:51 Ondansetron HCl (Zofran) 4 mg Q4H PRN IVP Nausea & Vomiting 04/29/20 21:30 05/29/20 21:29 Piperacillin Sod/ Tazobactam Sod 3.375 gm/Sodium Chloride 110 ml @ 27.5 mls/hr EVERY 8 HOURS IVPB 04/30/20 14:00 05/05/20 13:59 05/01/20 13:39 Assessment/Plan Assessment/Plan 1. NIRALI, likely from dehydration - electrolytes largely wnl 2. Emesis; resolved - s/p endoscopy with removal of foreign body and biopsy -Patient is to follow-up with GI for biopsy results 3. Possible aspiration pneumonitis -WBC 15.5 -> On Abx -> trending down -Monitor for fever; afebrile COVID-1 negative Medically stable from pulmonary standpoint The care for this patient was discussed with my supervising physician. Time spent for this case was approximately 31 minutes. Stef Gilman May 01, 2020 13:45
--- NOTE | 2020-05-01 14:37 | NUR ---
INSURANCE CLINICAL/REVIEW FAXED TO [facility] [employer]#[phone] fax#[phone]
[2020-05-01 16:00] VITALS: BP 116/73
--- NOTE | 2020-05-01 19:30 | NUR ---
NURSE NOTES: Patient discharged to Home; IV and name tag removed upon discharge; patient belongings signed by patient and discharge nurse; patient stable; patient said he is leaving Home via [place]; Home discharge paper signed by patient; patient education given;
--- NOTE | 2020-05-06 16:16 | Discharge Summary ---
Discharge Summary Discharge Summary _ Date of admission: 04/29/2020 Date of discharge: 05/01/[address] Decker History of Present Illness and Brief Hospital Course Mr. Kumar is a 29-year-old male with no reported past medical history who was brought in by EMS from home for evaluation of vomiting. Patient was eating steak which got stuck in his throat. Patient had multiple episodes of vomiting since then. The soft tissue film showed no obvious evidence of food impaction but patient continued to vomit after oral challenge. Esophagram was performed which confirmed food impaction. On upper endoscopy, there was an evidence of esophagitis from his food getting stuck in the distal esophagus. There was no evidence of distal esophageal stricture. A biopsy from distal esophagus was obtained to rule out eosinophilic esophagitis. Patient initially had elevated white blood cell count and was started on antibiotics. The white blood cell count trended down and patient remained afebrile. The biopsy result of distal esophagus revealed severe reflux esophagitis without evidence for eosinophilic esophagitis. Patient was medically stable for discharge and was discharged back home on 05/01/2020. Consultants: Pulmonology Dr. Hernandez Surgery Dr. Cloud Gastroenterology Dr. Lopez Discharge Condition Improved and stable Discharge Diet Advance as tolerated Final diagnoses NIRALI Emesis Toothache Dehydration Esophageal obstruction due to food impaction Reflux esophagitis I have been assigned to dictate discharge summary for this account. Stef Gilman May 06, 2020 16:16
== END 2020-05-01 19:00 | disposition home or self-care (01) | DRG 254 ==
LOC: EDBD 15:31 → EMR 16:25 → 4E 17:40 → EDBEDREQ 18:52
PROC: 0DB38ZX Excision of Lower Esophagus, Via Natural or Artificial Opening Endoscopic, Diagnostic (ICD-10-PCS; principal; 2020-04-30 07:02)
PROC: 0DC38ZZ Extirpation of Matter from Lower Esophagus, Via Natural or Artificial Opening Endoscopic (ICD-10-PCS; 2020-04-30 07:02)
DX: T18.128A Food in esophagus causing other injury, initial encounter (principal); J69.0 Pneumonitis due to inhalation of food and vomit; N17.9 Acute kidney failure, unspecified; E86.0 Dehydration; F31.89 Other bipolar disorder; K20.80 Other esophagitis without bleeding; N34.2 Other urethritis; J06.9 Acute upper respiratory infection, unspecified; K21.9 Gastro-esophageal reflux disease without esophagitis; K08.89 Other specified disorders of teeth and supporting structures
CPT/HCPCS: 36415; 70360; 71045; 74220; 80048; 80053; 82248; 83690; 83735; 84100; 85007; 85025; 85610; 85730; 87040; 94003; 94150; 96361; 96374; 96375; 99285; J2405; J7030

== ENCOUNTER 2020-05-24 22:58 | Emergency (ER) | payer MEDICAID ==
[~2020-05-24] VITALS: Ht 180.3 cm; Wt 70.3 kg
[~2020-05-24 22:58] MED LIST changes: +BIKTARVY 50-201 EACH PO; +CITALOPRAM HBR10 M1 ORAL; +ZYPREXA10 MG ORAL
--- NOTE | 2020-05-24 23:53 | Emergency Room Report ---
History of Present Illness General Chief Complaint: Skin Rash/Abscess Source: Patient Present Illness HPI 29-year-old -[place] male with past medical history of HIV presents emergency department after unprotected sexual intercourse. He has history of HIV and previous STDs and is requesting empiric treatment for gonorrhea, chlamydia, and syphilis. He states that he has been having "itching around his penis", green penile discharge. Denies fever, headache, photophobia, neck pain, chills, nausea, vomiting, diarrhea, dysuria, hematuria, chest pain, shortness of breath, abdominal pain or any other symptoms. Last unprotected sexual intercourse was this week The patient's symptoms were gradual onset, severity was moderate, duration since several days. Quality: Itching Past medical history: HIV Past surgical history: Denies Smoking: Denies Alcohol use: Denies Drug use: Denies Review of systems: CONST: No fevers or chills, No night sweats PULMONARY: No productive cough, No shortness of breath CARDIAC: No chest pain, No palpitations GI: No vomiting, No diarrhea , No melena_or_BRBPR : No dysuria, No hematuria, ++ discharge NEURO: No new_focal_weakness_or_numbness, No confusion, No vision changes 14 point Review of Systems is otherwise negative except per HPI Physical Exam: GENERAL: Awake_alert_ nontoxic, no acute distress Spo2 95% on RA -normal EYES: Extraocular muscles are intact. Conjunctivae clear. Lids without swelling ENT: External nose and ear normal_in_appearance. Oropharynx clear. Head_atraumatic, Moist_oral_mucosa NECK: No JVD. No meningismus. No thyromegaly. Supple. Trachea midline RESP: Normal respiratory effort. Symmetric rise. No stridor. Clear_to_auscultation_No_rales_No_wheezes CARDIAC: Regular rate and regular rhytm. No_significant pedal edema. ABDOMEN: Soft. Nondistended. Nontender_No_rebound_or_guarding. : Uncircumcised penis without rash, testicles descended without tenderness or swelling, testicles with normal lie. Chaperoned with nurse at bedside MSK: Normal muscle tone, without rigidity. Extremities without asymmetric deformity or swelling. SKIN: Warm and dry. No visible cyanosis or pallor. NEUROLOGIC: Alert, oriented x3. Motor_and_sensation_grossly_intact. No truncal ataxia. Gait_normal Psych: Normal mood and affect, normal judgment and insight - COORDINATION OF CARE Case was discussed with: Patient Any labs and imaging that were ordered were interpreted as part of the medical decision making: Medical Decision Making/Plan: Differential diagnosis includes chlamydia, gonorrhea, syphillis other STDs, UTI, among others Patient is nontoxic and well-appearing, no evidence of sepsis or pyelonephritis based on presentation. examination was performed with imaging technician. Notable for penile discharge from uncircumcised penis. No vesicular lesions compatible with herpes. He is specifically requesting syphilis treatment. Will treat with PCN G secondary to his immunocompromise status as HIV infected. Advised him to return for repeat doses of PCN G in 7 days Patient was empirically treated with ceftriaxone and azithromycin for chlamydia versus gonorrhea. Patient understands to get the rest of STD testing with their PMD including HIV among others. Safe sex practices were discussed. Advised no alcohol for 1 week. Pertinent results reviewed with the patient. I educated the patient on the current treatment plan including the risks, benefits, and alternatives. I also discussed the extent and limitations of the current evaluation. The patient expressed understanding and agreement with plan. I recommended PMD follow-up within 1-2 days. Also advised that the patient return to the Emergency Department as soon as possible if they experience any new, persistent, or worsening symptoms. 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 Nursing Documentation-PMH Hx Neurological Problems: No Physical Exam Vital Signs Date Time Temp Pulse Resp B/P (MAP) Pulse Ox O2 Delivery O2 Flow Rate FiO2 05/24/20 23:40 98.2 84 16 129/87 (101) 100 Room Air Sp02 EP Interpretation: reviewed, normal Medical Decision Making Diagnostic Impression: Primary Impression: HIV (human immunodeficiency virus infection) Additional Impressions: STD (male) STD exposure Last Vital Signs Date Time Temp Pulse Resp B/P (MAP) Pulse Ox O2 Delivery O2 Flow Rate FiO2 05/24/20 23:40 98.2 84 16 129/87 (101) 100 Room Air Disposition: HOME, SELF-CARE Admit Decision Time: 23:52 Condition: Stable Patient Instructions: Sexually Transmitted Disease, Khiz-be-Tbke Additional Instructions: 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 Practice safe sex. Use condoms. Do not have sex with infected partners. No alcohol x1 week. Return for repeat penicillin G injection in 7 days. Take all of your medications for HIV Follow-up with your doctor sooner if your condition requires a more timely clinical reevaluation. Return to the emergency department immediately if you feel that your condition is worsening or if you have any new or concerning symptoms. Review your discharge instructions and take any prescriptions given as instruct ed. [facility] PROVIDES FREE OR LOW-COST HEALTH SERVICES TO PEOPLE WHO CAN SHOW PROOF THAT THEY LIVE IN [facility]. TO FIND MORE CLINICS PARTNERED WITH [facility] TO PROVIDE SERVICE, PLEASE CALL . Betty Molina D.O. May 24, 2020 23:53
[2020-05-25] MEDS ORDERED: Azithromycin 250mg tab ORAL ONE
[2020-05-25] MEDS ORDERED: Lidocaine 1% MPF 10mg/ml 5ml INJ ONE
[2020-05-25] MEDS ORDERED: Bicillin LA 1.2MMU/2ML SYR IM ONE
[2020-05-25 00:07] VITALS: BP 129/87
--- NOTE | 2020-05-25 00:27 | NUR ---
Medicated as ordered, tolerated well.
== END 2020-05-25 00:40 | disposition home or self-care (01) ==
LOC: EMR 23:40
DX: B20 Human immunodeficiency virus [HIV] disease (principal); Z20.2 Contact with and (suspected) exposure to infections with a predominantly sexual mode of transmission
CPT/HCPCS: 96372; J0561; J0696; Q0144; Z7502; 99283